=== PATIENT | female | born 1970 | race Caucasian/White ===

== ENCOUNTER → 2019-03-02 09:17 | Outpatient (CLI) | payer OTHER, SELFPAY ==
[2019-03-02 08:59] VITALS: BMI 55.1
[2019-03-02 11:19] LABS: Absolute Lymphocyte Count 2.55 X10^3/uL (0.83-4.51); Absolute Neutrophil Count 4.2 X10^3/uL (2.0-7.7); Basophil# 0.06 X10^3/uL; Basophil% 0.8 % (0-1); Eosinophil# 0.09 X10^3/uL; Eosinophils% 1.2 % (0-5); Hematocrit 42.4 % (37-47); Hemoglobin 13.7 g/dL (12.0-15.0); Lymphocyte # 2.55 X10^3/ul (4.0); Lymphocyte % 33.5 % (19-41); Mean Corp Hgb Conc 32.3 g/dL (32-36); Mean Corpuscular Hgb 31.1 pg (27.0-32.0); Mean Corpuscular Volume 96.4 fL (81-99); Mean Platelet Vol. 10.8 fl (6.2-12.0); Monocyte# 0.65 X10^3/uL; Monocyte% 8.5 % (0-10); NRBC Flagged by Analyzer 0 % (0-5); Neutrophil # 4.24 X10^3/uL (2.7-7.7); Neutrophil % 55.7 % (47-70); Platelet Count 268 K/mm3 (150-450); RBC Distribution Width CV 13.4 % (11.6-14.6); RBC Distribution Width SD 47.8 fl (35.1-43.9); White Blood Count 7.6 K/mm3 (4.4-11.0)
== END ==
PROVIDERS: Family Provider Family Medicine; Referring Provider Obstetrics & Gynecology; Visit Provider Obstetrics & Gynecology
DX: N93.9 Abnormal uterine and vaginal bleeding, unspecified (principal)
CPT/HCPCS: 36415; 85025

== ENCOUNTER → 2019-03-08 13:55 | Outpatient (CLI) | payer OTHER, SELFPAY ==
[2019-03-02 08:59] VITALS: BMI 55.1
--- NOTE | 2019-03-08 13:59 | US_ITS ---
STUDY: ULTRASOUND TRANSVAGINAL CLINICAL: Female, 48 years old. Functional uterine bleeding. Heavy periods with cramping. TECHNIQUE: Transvaginal COMPARISON: None. FINDINGS: Uterus is anteverted in midline measuring 9.0 x 5.6 x 4.6 cm. The myometrium is heterogenous. There is at least one fibroid noted in the anterior fundus which is low in attenuation, measuring 1.6 x 1.9 x 1.9 cm Normal endometrial thickness measuring 13 mm. Endometrium is hyperechoic. There are no endometrial masses, and there is no fluid in the endometrial cavity. There are nabothian cysts in the cervix. Minimal fluid is seen within the cervical canal. The ovaries are not seen. There is no evidence of adnexal mass or fluid. There is no free fluid in the pelvis. Polycystic ovary disease: No. US/Transvaginal Non- IMPRESSION: 1. Fibroid uterus. 2. Prominent endometrium without gross abnormality. 3. Nabothian space. There is questionable fluid in the cervical canal. 4. Nonvisualization of the ovaries. Electronically Signed: Inocencio Mclean DO at 17:08 EDT Tel [phone], Service support ,
== END ==
PROVIDERS: Family Provider Family Medicine; Referring Provider Obstetrics & Gynecology; Visit Provider Obstetrics & Gynecology
DX: N93.8 Other specified abnormal uterine and vaginal bleeding (principal)
CPT/HCPCS: 76830

== ENCOUNTER → 2019-03-14 14:55 | Outpatient (CLI) | payer OTHER, SELFPAY ==
[2019-03-02 08:59] VITALS: BMI 55.1
--- NOTE | 2019-03-14 14:56 | BI_ITS ---
MAMMOGRAPHY - BILATERAL SCREENING REASON FOR EXAM: Female, 48 years old. Routine annual screening examination. PERTINENT HISTORY: Mother with breast cancer. TECHNIQUE: Digital bilateral breast laila (3D mammographic acquisition) in the CC and MLO projections. 2-D mediolateral oblique (MLO) and craniocaudad (CC) views of both breasts were obtained. CAD: Full Field Digital Mammography with Computer Added Detection was performed. COMPARISON: Comparison is made with prior study dated December 22, 2011. FINDINGS: Breast Composition: The breasts are almost entirely fatty. There are no dominant masses or suspicious calcifications. Stable benign-appearing bilateral axillary lymph nodes. No other significant abnormalities are identified. There has been no significant change since the prior study. BI/SCREEN MAMM (CAD) W/LAILA BILAT IMPRESSION: Stable bilateral screening mammogram. Yearly follow-up mammogram recommended. (A) ASSESSMENT CATEGORY: BIRADS Category 2: Benign. A letter regarding these results will be sent to the patient by the facility within 30 days. Approximately 10% of breast cancers are not detected by mammography. A normal mammogram should not delay biopsy of a clinically suspicious abnormality. [id number] Electronically Signed: Yogi Rubalcava, at 10:08 EDT , Service support ,
== END ==
PROVIDERS: Referring Provider Obstetrics & Gynecology; Visit Provider Obstetrics & Gynecology
DX: Z12.31 Encounter for screening mammogram for malignant neoplasm of breast (principal); Z80.3 Family history of malignant neoplasm of breast
CPT/HCPCS: 77063; 77067

== ENCOUNTER → 2019-04-14 14:54 | Outpatient (CLI) | payer OTHER, SELFPAY ==
--- NOTE | 2019-04-14 | EMB_PTH ---
PATIENT: PRAVIN العراقي LOC: [facility] U#:[id number] AGE/SX: 54/F ROOM: RE04/14/[address]: Dr. Vera Gao MD : 1970 BED: DIS: SPEC #: [id number] RECD: 04/15/19 11:06 STATUS: TIMI WHITLEY #: [id number] MINGO: 04/14/19 00:[address]: Vera Gao DEPT: SURGICAL PATHOLOGY RECD BY: Pito Gallego ENTERED: 04/15/19 11:06 SP TYPE: ENDOM BX/C RANDY DR: Scott Johnson Tissues: Endometrium, NOS Procedures: Surgery Specimen Level IV HEADER OPERATION: Endometrial biopsy PRE-OP DIAGNOSIS: Abnormal uterine bleeding TISSUE SUBMITTED: Endometrial biopsy MICROSCOPIC DIAGNOSIS Endometrial biopsy: Proliferative endometrium. Fragments of benign endocervical mucosa, blood and mucous. SJ:latosha 04/18/19 MICROSCOPIC DESCRIPTION Slides are reviewed. GROSS DESCRIPTION Received is one container labeled with the patient's name and not further designated. The specimen consists of multiple fragments of hemorrhagic mucoid tissue that in aggregate measure 1.5 x 1.5 x 0.2 cm. The specimen is totally submitted in one cassette. / SJ:latosha 04/15/19 TC:4 CPT: [id number]
[2019-04-14 10:44] VITALS: BMI 47.7
[2019-04-20 12:30] LABS: HPV APTIMA, High Risk Negative (Negative)
== END ==
PROVIDERS: Visit Provider Obstetrics & Gynecology
DX: Z12.4 Encounter for screening for malignant neoplasm of cervix (principal); N93.9 Abnormal uterine and vaginal bleeding, unspecified
CPT/HCPCS: 87624; 88175; 88305; G0145

== ENCOUNTER → 2020-03-16 08:09 | Outpatient (CLI) | payer OTHER, SELFPAY ==
[2019-04-14 10:44] VITALS: BMI 47.7
[2020-03-05 08:48] VITALS: BMI 51.0
--- NOTE | 2020-03-16 08:10 | BI_ITS ---
MAMMOGRAPHY - BILATERAL SCREENING REASON FOR EXAM: Female, 49 years old. Routine annual screening examination. PERTINENT HISTORY: Mother with breast cancer. TECHNIQUE: Digital bilateral breast laila (3D mammographic acquisition) in the CC and MLO projections. 2-D mediolateral oblique (MLO) and craniocaudad (CC) views of both breasts were obtained. CAD: Full Field Digital Mammography with Computer Added Detection was performed. COMPARISON: Comparison is made with the prior examination dated 03/14/2019 and 12/22/2011. FINDINGS: Breast Composition: The breasts are almost entirely fatty. There are no dominant masses or suspicious calcifications. Stable small benign-appearing bilateral axillary lymph nodes. No other significant abnormalities are identified. There has been no significant change since the prior study. BI/SCREEN MAMM (CAD) W/LAILA BILAT IMPRESSION: Stable bilateral screening mammogram. Yearly follow-up mammogram recommended. (A) ASSESSMENT CATEGORY: BIRADS Category 2: Benign. A letter regarding these results will be sent to the patient by the facility within 30 days. Approximately 10% of breast cancers are not detected by mammography. A normal mammogram should not delay biopsy of a clinically suspicious abnormality. [id number] Electronically Signed: Yogi Rubalcava, at 9:41 EDT , Service support ,
== END ==
PROVIDERS: Referring Provider Obstetrics & Gynecology; Visit Provider Obstetrics & Gynecology
DX: Z12.31 Encounter for screening mammogram for malignant neoplasm of breast (principal)
CPT/HCPCS: 77063; 77067

== ENCOUNTER → 2021-03-18 07:55 | Outpatient (CLI) | payer OTHER, SELFPAY ==
[2020-03-05 08:48] VITALS: BMI 51.0
--- NOTE | 2021-03-18 07:58 | BI_ITS ---
MAMMOGRAPHY - BILATERAL SCREENING REASON FOR EXAM: Female, 50 years old. Routine annual screening examination. PERTINENT HISTORY: Mother with breast cancer. Grandmother with breast cancer. TECHNIQUE: Digital bilateral breast laila (3D mammographic acquisition) in the CC and MLO projections. 2-D mediolateral oblique (MLO) and craniocaudad (CC) views of both breasts were obtained. CAD: Full Field Digital Mammography with Computer Added Detection was performed. COMPARISON: Comparison is made with prior study dated 03/16/2020 and 03/14/2019. FINDINGS: Breast Composition: The breasts are almost entirely fatty. There are no dominant masses or suspicious calcifications. Stable small benign-appearing bilateral axillary lymph nodes. No other significant abnormalities are identified. There has been no significant change since the prior study. BI/SCRN MAMM (CAD)W/LAILA BILAT IMPRESSION: Stable bilateral screening mammogram. Yearly follow-up mammogram recommended. (A) ASSESSMENT CATEGORY: BIRADS Category 2: Benign. A letter regarding these results will be sent to the patient by the facility within 30 days. Approximately 10% of breast cancers are not detected by mammography. A normal mammogram should not delay biopsy of a clinically suspicious abnormality. [id number] Electronically Signed: Yogi Rubalcava MD at 8:55 EDT , Service support ,
== END ==
PROVIDERS: Referring Provider Obstetrics & Gynecology; Visit Provider Obstetrics & Gynecology
DX: Z12.31 Encounter for screening mammogram for malignant neoplasm of breast (principal)
CPT/HCPCS: 77063; 77067

== ENCOUNTER → 2022-04-07 | Outpatient (CLI) | payer BC, SELFPAY ==
--- NOTE | 2022-04-07 13:37 | BI_ITS ---
MAMMOGRAPHY - BILATERAL SCREENING REASON FOR EXAM: Female, 51 years old. Routine annual screening examination. PERTINENT HISTORY: Mother with breast cancer. Grandmother with breast cancer. TECHNIQUE: Digital bilateral breast laila (3D mammographic acquisition) in the CC and MLO projections. 2-D mediolateral oblique (MLO) and craniocaudad (CC) views of both breasts were obtained. CAD: Full Field Digital Mammography with Computer Added Detection was performed. COMPARISON: Comparison is made with prior study dated 03/18/2021 and 03/16/2020. FINDINGS: Breast Composition: The breasts are almost entirely fatty. There are no dominant masses or suspicious calcifications. Stable small benign-appearing bilateral axillary lymph nodes. No other significant abnormalities are identified. There has been no significant change since the prior study. BI/SCRN MAMM (CAD)W/LAILA BILAT IMPRESSION: Stable bilateral screening mammogram. Yearly follow-up mammogram recommended. (A) ASSESSMENT CATEGORY: BIRADS Category 2: Benign. A letter regarding these results will be sent to the patient by the facility within 30 days. Approximately 10% of breast cancers are not detected by mammography. A normal mammogram should not delay biopsy of a clinically suspicious abnormality. [id number] Electronically Signed: Yogi Rubalcava MD at 14:27 EST ,
== END | disposition home or self-care (01) ==
LOC: OPBI 13:36
PROVIDERS: Visit Provider Obstetrics & Gynecology
DX: Z12.31 Encounter for screening mammogram for malignant neoplasm of breast (principal); Z80.3 Family history of malignant neoplasm of breast
CPT/HCPCS: 77063; 77067

== ENCOUNTER → 2023-04-09 | Outpatient (CLI) | payer BC, SELFPAY ==
[2023-04-17 22:07] LABS: HPV APTIMA, High Risk Positive (Negative); HPV Genotype 16, Aptima Negative (Negative); HPV Genotype 18,45 Aptima Negative (Negative)
== END | disposition home or self-care (01) ==
PROVIDERS: PCP Family Medicine; Referring Provider Obstetrics & Gynecology; Visit Provider Obstetrics & Gynecology
DX: Z12.4 Encounter for screening for malignant neoplasm of cervix (principal)
CPT/HCPCS: 87624; 88175; G0145

== ENCOUNTER → 2023-04-15 | Outpatient (CLI) | payer BC, SELFPAY ==
--- NOTE | 2023-04-15 10:25 | BI_ITS ---
MAMMOGRAPHY - BILATERAL SCREENING REASON FOR EXAM: Female, 52 years old. Routine annual screening examination. PERTINENT HISTORY: Mother with breast cancer. Grandmother with breast cancer. TECHNIQUE: Digital bilateral breast laila (3D mammographic acquisition) in the CC and MLO projections. 2-D mediolateral oblique (MLO) and craniocaudad (CC) views of both breasts were obtained. CAD: Full Field Digital Mammography with Computer Added Detection was performed. COMPARISON: Comparison is made with prior study dated April 07, 2022 and March 18, 2021. FINDINGS: Breast Composition: The breasts are almost entirely fatty. There are no dominant masses or suspicious calcifications. Stable small benign-appearing bilateral axillary lymph nodes. No other significant abnormalities are identified. There has been no significant change since the prior study. BI/SCRN MAMM (CAD)W/LAILA BILAT IMPRESSION: Stable bilateral screening mammogram. Yearly follow-up mammogram recommended. (A) ASSESSMENT CATEGORY: BIRADS Category 2: Benign. A letter regarding these results will be sent to the patient by the facility within 30 days. Approximately 10% of breast cancers are not detected by mammography. A normal mammogram should not delay biopsy of a clinically suspicious abnormality. [id number] Electronically Signed: Yogi Rubalcava MD at 14:39 EST ,
== END | disposition home or self-care (01) ==
LOC: OPBI 10:23
PROVIDERS: PCP Family Medicine; Referring Provider Obstetrics & Gynecology; Visit Provider Obstetrics & Gynecology
DX: Z12.31 Encounter for screening mammogram for malignant neoplasm of breast (principal); Z80.3 Family history of malignant neoplasm of breast
CPT/HCPCS: 77063; 77067

== ENCOUNTER → 2023-08-04 | Outpatient (CLI) | payer OTHER, SELFPAY ==
--- NOTE | 2023-08-04 08:12 | EKG12_ITS ---
Test Reason : OBESITY Blood Pressure : / mmHG Vent. Rate : 071 BPM Atrial Rate : 071 BPM P-R Int : 168 ms QRS Dur : 088 ms QT Int : 398 ms P-R-T Axes : 064 045 037 degrees QTc Int : 432 ms Normal sinus rhythm Low voltage QRS Borderline ECG Confirmed by Dion Chávez ([id number]), manager medical writing CARLENE WINTERS ([id number]) on 08/07/2023 2:02:58 PM Referred By: Vera Gao Confirmed By:Dion Chávez
== END | disposition home or self-care (01) ==
LOC: PSN 08:10
PROVIDERS: PCP Family Medicine; Referring Provider Obstetrics & Gynecology; Visit Provider Obstetrics & Gynecology
DX: E66.9 Obesity, unspecified (principal)
CPT/HCPCS: 93005

== ENCOUNTER 2023-08-12 09:26 | Outpatient (CLI) | payer OTHER, SELFPAY ==
[2023-08-12 10:13] LABS: Vitamin D,25 Hydroxy 14.1 ng/mL
== END 2023-08-12 23:59 | disposition home or self-care (01) ==
LOC: PAVLAB 09:27
PROVIDERS: PCP Family Medicine; Referring Provider Obstetrics & Gynecology; Visit Provider Obstetrics & Gynecology
DX: Z13.21 Encounter for screening for nutritional disorder (principal)
CPT/HCPCS: 36415; 82306

== ENCOUNTER → 2024-03-11 | Outpatient (CLI) | payer OTHER, SELFPAY ==
--- OUTSIDE RECORDS SUMMARY | 2024-03-11 08:27 | XMS RPT_ITS | CCD ---
Author Organization [facility] Inform ion Partnership [facility] Care Team Providers Care Home Sales Service Professional Name Role Phone Delicia Johnson MD Primary Care Provider DELICIA JOHNSON Referring Unavailable DELICIA JOHNSON Primary Care Unavailable DELICIA JOHNSON Referring Unavailable DELICIA JOHNSON Attending Unavailable DELICIA JOHNSON Primary Care Unavailable Delicia Johnson MD Primary Care Provider Delicia Johnson MD Primary Care Provider Allergies Allergy Classification Reported Allergen(s) Allergy Type Date of Onset Reaction(s) Facility (4 sources) Penicillins; Translations: [PENICILLINS] Drug Intolerance 2 Other: See Comments [facility] (17 sources) Bee Sting; Translations: [BEE STING] Propensity to adverse reactions 8 Other: See Comments [facility] (13 sources) Penicillins Drug Intolerance 2 Other: See Comments [facility] Medications Current Medications Medication Drug Class(es) Dates Sig (Normalized) Sig (Original) levothyroxine sodium 0.088 mg oral tablet (20 sources) l-Thyroxine Start: 05-19-2023 End: 01-14-2024 take 1 tablet by mouth once daily levothyroxine (SYNTHROID) 88 mcg tablet Indications: Acquired hypothyroidism Take 1 tablet by mouth once daily. 90 tablet 3 01/15/2024 Active Start: 08-11-2022 End: 04-15-2023 take 1 tablet by mouth once daily levothyroxine (SYNTHROID) 88 mcg tablet Indications: Acquired hypothyroidism Take 1 tablet by mouth once daily. 90 tablet 0 04/15/2023 Active Start: 03-20-2021 End: 08-04-2022 take 1 tablet by mouth once daily levothyroxine (SYNTHROID) 88 mcg tablet Take 1 tablet by mouth once daily. 30 tablet 11 03/20/2021 09/16/2021 Discontinued Comment on above: Take 1 tablet by deirdre th once daily. meloxicam 15 mg oral tablet (20 sources) Nonsteroidal Anti-inflammatory Drug Start: 03-20-20 End: 04-04-20 22 take 1 tablet by mouth once daily at mealtime meloxicam (MOBIC) 15 mg tablet Indications: Sprain of right knee, unspecified ligament, initial encounter Take 1 tablet by mouth once daily. With food. 10 tablet 03/20/2021 Active Comment on above: Take 1 tablet by deirdre th once daily. With food. Take 1 tablet by deirdre th once daily. tranexamic acid 650 mg oral tablet (16 sources) Antifibrinolytic Agent Start: 08-23-19 take 2 tablets by mouth three times daily tranexamic acid (LYSTEDA) 650 mg tablet TAKE 2 TABLETS BY MOUTH 3 TIMES A DAY 5 DAYS BEGIN AT ONSET OF MENSTRUAL BLEEDING 08/23/2019 Active Comment on above: TAKE 2 TABLETS BY MO [facility] 3 TIMES A DAY 5 DAYS BEGIN AT ONSET OF MENSTRUAL BLEEDING Completed/Discontinued Medications Medication Drug Class(es) Dates Sig (Normalized) Sig (Original) betamethasone 3 mg/ml / betamethasone acetate 3 mg/ml injectable suspension (2 sources) Corticosteroid Start: 10-07-2021 End: 10-07-2021 betamethasone acetate-betamethason e sodium phosphate 3 mg injection (CELESTONE) Start: 10-07-2021 End: 10-07-2021 betamethasone acetate-betame thasone sodium phosphate 6 mg injection (CELESTONE) 10 ml lidocaine hydrochloride 10 mg/ml injection (2 sources) Antiarrhythmic, Amide Local Anesthetic Start: 10-07-2021 End: 10-07-2021 lidocaine (PF) 10 mg/mL (1 %) 0.5 mL injection (XYLOCAINE) Start: 10-07-2021 End: 10-07-2021 lidocaine (PF) 10 mg/mL (1 % ) 5 mL injection (XYLOCAINE) Problems Active Problems Problem Classification Problem Date Documented Date Episodic/Chronic Disorders of lipid metabolism (1 source) Raised low density lipoprotein cholesterol; Translations: [Pure hypercholesterolemia, unspecified] Chronic Immunizations and screening for infectious disease (3 sources) Patient encounter status; Translations: [Encounter for screening for human immunodeficiency virus [HIV]] Episodic Joint disorders and dislocations; trauma-related (2 sources) Subluxation of patellofemoral joint; Translations: [Unspecified subluxation of unspecified patella, initial encounter] Episodic Osteoarthritis (1 source) Primary gonarthrosis, bilateral; Translations: [Bilateral primary osteoarthritis of knee] Chronic Other connective tissue disease (1 source) Pes anserinus bursitis of right knee; Translations: [Other bursitis of knee, right knee] Episodic Other non-traumatic joint disorders (1 source) Pain in right knee; Translations: [Pain in joint, lower leg] Episodic Other nutritional; endocrine; and metabolic disorders (18 sources) Body mass index 40+ - severely obese; Translations: [Morbid (severe) obesity due to excess calories] Onset: 10-07-2017 10-07-2017 Chronic Sprains and strains (1 source) Sprain of right knee; Translations: [Sprain of unspecified site of right knee, initial encounter] 03-20-2021 Episodic Thyroid disorders (20 sources) Acquired hypothyroidism; Translations: [Hypothyroidism, unspecified] Onset: 03-04-2016 03-04-2016 Chronic Past or Other Problems Problem Classification Problem Date Documented Da te Episodic/Chronic Other ear and sense organ disorders (3 sources) Bilateral tinnitus; Translations: [Tinnitus, bilateral] Onset: 05-19-2023 Episodic Other screening for suspected conditions (not mental disorders or infectious disease) (3 sources) Encounter for screening for diabetes mellitus; Translations: [Thyroid function tests abnormal] Onset: 10-13-2012 Resolved: 06-24-2017 06-24-2017 Episodic Varicose veins of lower extremity (16 sources) Lipodermatosclerosi s; Translations: [Varicose veins of unspecified lower extremity with inflammation] Onset: 07-14-2017 07-14-2017 Episodic Results Test Name Value Interpretation Reference Range Facil ity CBC W Auto Differential pane l (Bld)on 05-22-2023 Basophils (Bld) [#/Vol] 0.05 10*3/uL Normal <0.11 [facility] Comment on above: Order Comment: Speci men Type: BLOOD SPECIMEN Ordering Facility: [facility] Address: [address] [place] [address] Performed By: #### 5 7021-8 #### [facility] CLIA [id number] [address] [place] [address] [place] Basophils/100 WBC (Bld) 0.7 % Normal [facility] Comment on above: Order Comment: Speci men Type: BLOOD SPECIMEN Ordering Facility: [facility] Address: [address] [place] [address] Performed By: #### 5 7021-8 #### [facility] CLIA [id number] [address] [place] [address] [place] Differential cell count method Nom (Bld) Auto Normal [facility] Comment on above: Order Comment: Speci men Type: BLOOD SPECIMEN Ordering Facility: [facility] Address: [address] [place] [address] Performed By: #### 5 7021-8 #### [facility] CLIA [id number] [address] [place] [address] [place] Eosinophils (Bld) [#/Vol] 0.14 10*3/uL Normal <0.46 [facility] Comment on above: Order Comment: Speci men Type: BLOOD SPECIMEN Ordering Facility: [facility] Address: [address] [place] [address] Performed By: #### 5 7021-8 #### [facility] CLIA [id number] [address] [place] [address] [place] Eosinophils/100 WBC (Bld) 2.1 % Normal [facility] Comment on above: Order Comment: Speci men Type: BLOOD SPECIMEN Ordering Facility: [facility] Address: [address] [place] [address] Performed By: #### 5 7021-8 #### [facility] CLIA [id number] [address] [place] [address] [place] Erythrocyte distribution width (RBC) [Ratio] 13.4 % Normal 11.5-15.0 [facility] Comment on above: Order Comment: Speci men Type: BLOOD SPECIMEN Ordering Facility: [facility] Address: [address] [place] [address] Performed By: #### 5 7021-8 #### [facility] CLIA [id number] [address] [place] [address] [place] Hematocrit (Bld) [Volume fraction] 40.9 % Normal 36.0-46.0 [facility] Comment on above: Order Comment: Speci men Type: BLOOD SPECIMEN Ordering Facility: [facility] Address: [address] [place] [address] Performed By: #### 5 7021-8 #### [facility] CLIA [id number] [address] [place] [address] [place] Hemoglobin (Bld) [Mass/Vol] 13.2 g/dL Normal 11.5-15.5 [facility] Comment on above: Order Comment: Speci men Type: BLOOD SPECIMEN Ordering Facility: [facility] Address: [address] [place] [address] Performed By: #### 5 7021-8 #### [facility] CLIA [id number] [address] [place] [address] [place] Immature granulocytes (Bld) [#/Vol] 0.03 10*3/uL Normal <0.10 [facility] Comment on above: Order Comment: Speci men Type: BLOOD SPECIMEN Ordering Facility: [facility] Address: [address] [place] [address] Performed By: #### 5 7021-8 #### [facility] CLIA [id number] [address] [place] [address] [place] Immature granulocytes/100 WBC (Bld) 0.4 % Normal [facility] Comment on above: Order Comment: Speci men Type: BLOOD SPECIMEN Ordering Facility: [facility] Address: [address] [place] [address] Performed By: #### 5 7021-8 #### [facility] CLIA [id number] [address] [place] [address] [place] Lymphocytes (Bld) [#/Vol] 2.39 10*3/uL Normal 1.00-4.00 [facility] Comment on above: Order Comment: Speci men Type: BLOOD SPECIMEN Ordering Facility: [facility] Address: [address] [place] [address] Performed By: #### 5 7021-8 #### [facility] CLIA [id number] [address] [place] [address] [place] Lymphocytes/100 WBC (Bld) 35.1 % Normal [facility] Comment on above: Order Comment: Speci men Type: BLOOD SPECIMEN Ordering Facility: [facility] Address: [address] [place] [address] Performed By: #### 5 7021-8 #### [facility] CLIA [id number] [address] [place] [address] [place] MCH (RBC) [Entitic mass] 30.8 pg Normal 26.0-34.0 [facility] Comment on above: Order Comment: Speci men Type: BLOOD SPECIMEN Ordering Facility: [facility] Address: [address] [place] [address] Performed By: #### 5 7021-8 #### [facility] CLIA [id number] [address] [place] [address] [place] MCHC (RBC) [Mass/Vol] 32.3 g/dL Normal 30.5-36.0 [facility] Comment on above: Order Comment: Speci men Type: BLOOD SPECIMEN Ordering Facility: [facility] Address: [address] [place] [address] Performed By: #### 5 7021-8 #### [facility] CLIA [id number] [address] [place] [address] [place] MCV (RBC) [Entitic vol] 95.3 fL Normal 80.0-100.0 [facility] Comment on above: Order Comment: Speci men Type: BLOOD SPECIMEN Ordering Facility: [facility] Address: [address] [place] [address] Performed By: #### 5 7021-8 #### [facility] CLIA [id number] [address] [place] [address] [place] Monocytes (Bld) [#/Vol] 0.56 10*3/uL Normal <0.87 [facility] Comment on above: Order Comment: Speci men Type: BLOOD SPECIMEN Ordering Facility: [facility] Address: [address] [place] [address] Performed By: #### 5 7021-8 #### [facility] CLIA [id number] [address] [place] [address] [place] Monocytes/100 WBC (Bld) 8.2 % Normal [facility] Comment on above: Order Comment: Speci men Type: BLOOD SPECIMEN Ordering Facility: [facility] Address: [address] [place] [address] Performed By: #### 5 7021-8 #### [facility] CLIA [id number] [address] [place] [address] [place] Neutrophils (Bld) [#/Vol] 3.63 10*3/uL Normal 1.45-7.50 [facility] Comment on above: Order Comment: Speci men Type: BLOOD SPECIMEN Ordering Facility: [facility] Address: [address] [place] [address] Performed By: #### 5 7021-8 #### [facility] CLIA [id number] [address] [place] [address] [place] Neutrophils/100 WBC (Bld) 53.5 % Normal [facility] Comment on above: Order Comment: Speci men Type: BLOOD SPECIMEN Ordering Facility: [facility] Address: [address] [place] [address] Performed By: #### 5 7021-8 #### [facility] CLIA [id number] [address] [place] [address] [place] Nucleated RBC (Bld) [#/Vol] 10*3/uL Normal <0.01 [facility] Comment on above: Order Comment: Speci men Type: BLOOD SPECIMEN Ordering Facility: [facility] Address: [address] [place] [address] Performed By: #### 5 7021-8 #### [facility] CLIA [id number] [address] [place] [address] [place] Nucleated RBC/100 WBC (Bld) [Ratio] 0.0 /100 WBC Normal [facility] Comment on above: Order Comment: Speci men Type: BLOOD SPECIMEN Ordering Facility: [facility] Address: [address] [place] [address] Performed By: #### 5 7021-8 #### [facility] CLIA [id number] [address] [place] [address] [place] Platelet mean volume (Bld) [Entitic vol] 10.7 fL Normal 9.0-12.7 [facility] Comment on above: Order Comment: Speci men Type: BLOOD SPECIMEN Ordering Facility: [facility] Address: [address] [place] [address] Performed By: #### 5 7021-8 #### [facility] CLIA [id number] [address] [place] [address] [place] Platelets (Bld) [#/Vol] 289 10*3/uL Normal 150-400 [facility] Comment on above: Order Comment: Speci men Type: BLOOD SPECIMEN Ordering Facility: [facility] Address: [address] [place] [address] Performed By: #### 5 7021-8 #### [facility] CLIA [id number] [address] [place] [address] [place] RBC (Bld) [#/Vol] 4.29 10*6/uL Normal 3.90-5.20 [facility] Comment on above: Order Comment: Speci men Type: BLOOD SPECIMEN Ordering Facility: [facility] Address: [address] [place] [address] Performed By: #### 5 7021-8 #### [facility] CLIA [id number] [address] [place] [id number] [place] WBC (Bld) [#/Vol] 6.80 10*3/uL Normal 3.70-11.00 [facility] Comment on above: Order Comment: Speci men Type: BLOOD SPECIMEN Ordering Facility: [facility] Address: [address] [place] [address] Performed By: #### 5 7021-8 #### [facility] CLIA [id number] [address] [place] [address] [place] Comprehensive metabolic 2000 panelon 05-22-2023 Albumin [Mass/Vol] 3.9 g/dL Normal 3.9-4.9 [facility] Comment on above: Order Comment: Speci men Type: BLOOD SPECIMEN Ordering Facility: [facility] Address: [address] [place] [address] Performed By: #### 2 4331-1, T4FT, 15746-8 #### [facility] CLIA [id number] [address] [place] [address] [place] ALP [Catalytic activity/Vol] 84 U/L Normal 34-123 [facility] Comment on above: Order Comment: Speci men Type: BLOOD SPECIMEN Ordering Facility: [facility] Address: [address] [place] [address] Performed By: #### 2 4331-1, T4FTI, 40443-0 #### [facility] CLIA [id number] [address] [place] [id number] [place] ALT [Catalytic activity/Vol] 21 U/L Normal 7-38 [facility] Comment on above: Order Comment: Speci men Type: BLOOD SPECIMEN Ordering Facility: [facility] Address: [address] [place] [address] Performed By: #### 2 4331-1, T4FTI, #### [facility] CLIA [id number] [address] [place] [address] [place] Anion gap [Moles/Vol] 11 mmol/L Normal 9-18 [facility] Comment on above: Order Comment: Speci men Type: BLOOD SPECIMEN Ordering Facility: [facility] Address: [address] [place] [address] Performed By: #### 2 4331-1, T4FTI, #### [facility] CLIA [id number] [address] [place] [address] [place] AST [Catalytic activity/Vol] 17 U/L Normal 13-35 [facility] Comment on above: Order Comment: Speci men Type: BLOOD SPECIMEN Ordering Facility: [facility] Address: [address] [place] [address] Performed By: #### 2 4331-1, T4FTI, #### [facility] CLIA [id number] [address] [place] [address] [place] Bilirubin [Mass/Vol] 0.4 mg/dL Normal 0.2-1.3 [facility] Comment on above: Order Comment: Speci men Type: BLOOD SPECIMEN Ordering Facility: [facility] Address: [address] [place] [address] Performed By: #### 2 4331-1, T4FTI, 43429-0 #### [facility] CLIA [id number] [address] [place] [address] [place] Calcium [Mass/Vol] 9.1 mg/dL Normal 8.5-10.2 [facility] Comment on above: Order Comment: Speci men Type: BLOOD SPECIMEN Ordering Facility: [facility] Address: [address] [place] [address] Performed By: #### 2 4331-1, T4FTI, #### [facility] CLIA [id number] [address] [place] [address] [place] Chloride [Moles/Vol] 102 mmol/L Normal 97-105 [facility] Comment on above: Order Comment: Speci men Type: BLOOD SPECIMEN Ordering Facility: [facility] Address: [address] [place] [address] Performed By: #### 2 4331-1, T4FT, #### [facility] CLIA [id number] [address] [place] [address] [place] CO2 [Moles/Vol] 26 mmol/L Normal 22-30 [facility] Comment on above: Order Comment: Speci men Type: BLOOD SPECIMEN Ordering Facility: [facility] Address: [address] [place] [address] Performed By: #### 2 4331-1, T4FT, #### [facility] CLIA [id number] [address] [place] [address] [place] Creatinine [Mass/Vol] 0.68 mg/dL Normal 0.58-0.96 [facility] Comment on above: Order Comment: Speci men Type: BLOOD SPECIMEN Ordering Facility: [facility] Address: [address] [place] [address] Performed By: #### 2 4331-1, T4FT, #### [facility] CLIA [id number] [address] [place] [address] [place] Creatinine and Glomerular filtration rate.predicted panel (S/P/Bld) 104 mL/min/1.73m??? Normal >=60 [facility] Comment on above: Order Comment: Speci men Type: BLOOD SPECIMEN Ordering Facility: [facility] Address: [address] [place] [address] Result Comment: Brittney mated Glomerular Filtration Rate (eGFR) is calculated using the 2020 CKD-EPI creatinine equation. This equation utilizes serum creatinine, sex, and age as parameters. The creatinine assay has traceable calibration to isotope dilution-mass spectrometry. Refer to KDIGO guidelines for clinical interpretation. In patients with unstable renal function, e.g. those with acute kidney injury, the eGFR may not accurately reflect actual GFR. Performed By: #### 2 4331-1, T4FTI, #### [facility] CLIA [id number] [address] [place] [address] [place] Glucose [Mass/Vol] 100 mg/dL High 74-99 [facility] Comment on above: Order Comment: Pacheco valiente Type: BLOOD SPECIMEN Ordering Facility: [facility] Address: [address] [place] [address] Result Comment: The [place] Diabetes [employer] (ADA) provides guidance for cutoff values for fasting glucose and random glucose. The ADA defines fasting as no caloric intake for at least 8 hours. Fasting plasma glucose results between 100 to 125 mg/dL indicate increased risk for diabetes (prediabetes). Fasting plasma glucose results greater than or equal to 126 mg/dL meet the criteria for diagnosis of diabetes. In the absence of unequivocal hyperglycemia, results should be confirmed by repeat testing. In a patient with classic symptoms of hyperglycemia or hyperglycemic crisis, random plasma glucose results greater than or equal to 200 mg/dL meet the criteria for diagnosis of diabetes. Reference: Standards of Medical Care in Diabetes 2016, [place] [employer]. Diabetes Care. 2016.39(Suppl 1). Performed By: #### 2 4331-1, T4FT, #### [facility] CLIA [id number] [address] [place] [address] [place] Potassium [Moles/Vol] 3.9 mmol/L Normal 3.7-5.1 [facility] Comment on above: Order Comment: Pacheco valiente Type: BLOOD SPECIMEN Ordering Facility: [facility] Address: [address] [place] [address] Performed By: #### 2 4331-1, T4FTI, #### [facility] CLIA [id number] [address] [place] [address] [place] Protein [Mass/Vol] 7.0 g/dL Normal 6.3-8.0 [facility] Comment on above: Order Comment: Speci men Type: BLOOD SPECIMEN Ordering Facility: [facility] Address: [address] [place] [address] Performed By: #### 2 4331-1, T4FTI, #### [facility] CLIA [id number] [address] [place] [address] [place] Sodium [Moles/Vol] 139 mmol/L Normal 136-144 [facility] Comment on above: Order Comment: Speci men Type: BLOOD SPECIMEN Ordering Facility: [facility] Address: [address] [place] [address] Performed By: #### 2 4331-1, T4FTI, #### [facility] CLIA [id number] [facility] [place] [address] [place] Urea nitrogen [Mass/Vol] 15 mg/dL Normal 7-21 [facility] Comment on above: Order Comment: Speci men Type: BLOOD SPECIMEN Ordering Facility: [facility] Address: [address] [place] [address] Performed By: #### 2 4331-1, T4FT, #### [facility] CLIA [id number] [address] [place] [address] [place] HbA1c (Bld)on 05-22-2023 Average glucose Estimated from glycated hemoglobin (Bld) [Mass/Vol] 111 mg/dL Normal [facility] Comment on above: Order Comment: Speci men Type: BLOOD SPECIMEN Ordering Facility: [facility] Address: [address] [place] [address] Result Comment: eAG: (Estimated average glucose) is a calculated value from HgbA1c and is sales representative leather goods of the average blood glucose level in the last 2-3 month period. Performed By: #### 5 5454-3 #### [facility] CLIA [id number] [address] [place] [address] [place] HbA1c (Bld) [Mass fraction] 5.5 % Normal 4.3-5.6 [facility] Comment on above: Order Comment: Pacehco valiente Type: BLOOD SPECIMEN Ordering Facility: [facility] Address: [address] [place] [address] Result Comment: [place] Diabetes Association guidelines indicate that patients with HgbA1c in the range 5.7-6.4% are at increased risk for development of diabetes, and intervention by lifestyle modification may be beneficial. HgbA1c greater or equal to 6.5% is considered diagnostic of diabetes. Performed By: #### 5 5454-3 #### [facility] CLIA [id number] [address] [place] [address] [place] Lipid 1996 panelon 3 Cholesterol [Mass/Vol] 211 mg/dL High <200 [facility] Comment on above: Order Comment: Pacheco valiente Type: BLOOD SPECIMEN Ordering Facility: [facility] Address: [address] [place] [address] Result Comment: <200 mg/dL, Desirable 200-239 mg/dL, Borderline high >239 mg/dL, High Performed By: #### 2 4331-1, T4FTI, #### [facility] CLIA [id number] [address] [place] Cholesterol in HDL [Mass/Vol] 58 mg/dL Normal >39 [facility] Comment on above: Order Comment: Pacheco valiente Type: BLOOD SPECIMEN Ordering Facility: [facility] Address: [address] [place] [address] Result Comment: 40-5 9 mg/dL, Acceptable >59 mg/dL, High: Negative risk factor for coronary heart disease <40 mg/dL, Low: Positive risk factor for coronary heart disease Performed By: #### 2 4331-1, T4FTI, #### [facility] CLIA [id number] [address] [place] Cholesterol in LDL [Mass/Vol] 131 mg/dL High <100 [facility] Comment on above: Order Comment: Hernani men Type: BLOOD SPECIMEN Ordering Facility: [facility] Address: [address] [place] [address] Result Comment: <100 mg/dL, Optimal 100-129 mg/dL, Near optimal/above optimal 130-159 mg/dL, Borderline high 160-189 mg/dL, High >189 mg/dL, Very high Secondary prevention optimal LDL Cholesterol levels are recommended to be < 70 mg/dL Performed By: #### 2 4331-1, T4FTI, #### [facility] CLIA [id number] [address] [place] [address] [place] Cholesterol in LDL/Cholesterol in HDL [Mass ratio] 2.26 {ratio} Normal <2.54 [facility] Comment on above: Order Comment: Pacheco men Type: BLOOD SPECIMEN Ordering Facility: [facility] Address: [address] [place] [address] Result Comment: Robbie jaimes: 1. National Cholesterol Education Program ATP III Guideline At-A-Glance Quick Desk Reference: National Heart, Lung, and Blood [place]. National Institutes of Health. 2001: NIH Publication No. 01-3305. 2. An International Atherosclerosis Society position paper: global recommendations for the management of dyslipidemia: executive summary, Atherosclerosis. 2014: 232(2):410-413. Performed By: #### 2 4331-1, T4FT, #### [facility] CLIA [id number] [address] [place] [address] [place] Cholesterol in VLDL [Mass/Vol] 22 mg/dL Normal <30 [facility] Comment on above: Order Comment: Pacheco men Type: BLOOD SPECIMEN Ordering Facility: [facility] Address: [address] [place] [address] Performed By: #### 2 4331-1, T4FTI, #### [facility] CLIA [id number] [address] [place] [address] [place] Cholesterol non HDL [Mass/Vol] 153 mg/dL High <130 [facility] Comment on above: Order Comment: Speci men Type: BLOOD SPECIMEN Ordering Facility: [facility] Address: [address] [place] [address] Result Comment: <130 mg/dL, Optimal 130-159 mg/dL, Near optimal/above optimal 160-189 mg/dL, Borderline high 190-219 mg/dL, High >219 mg/dL, Very high Secondary prevention optimal non HDL Cholesterol levels are recommended to be <100 mg/dL Performed By: #### 2 4331-1, T4FTI, #### [facility] CLIA [id number] [address] [place] [address] [place] Cholesterol.total/C holesterol in HDL [Mass ratio] 3.64 {ratio} Normal <5.10 [facility] Comment on above: Order Comment: Speci men Type: BLOOD SPECIMEN Ordering Facility: [facility] Address: [address] [place] [address] Performed By: #### 2 4331-1, T4FTI, #### [facility] CLIA [id number] [address] [place] [address] [place] FASTING TIME 13 hrs Normal [facility] Comment on above: Order Comment: Speci men Type: BLOOD SPECIMEN Ordering Facility: [facility] Address: [address] [place] [address] Performed By: #### 2 4331-1, T4FTI, #### [facility] CLIA [id number] [address] [place] [id number] [place] Triglyceride [Mass/Vol] 108 mg/dL Normal <150 [facility] Comment on above: Order Comment: Speci men Type: BLOOD SPECIMEN Ordering Facility: [facility] Address: [address] [place] [address] Result Comment: <150 mg/dL, Normal 150-199 mg/dL, Borderline high 200-499 mg/dL, High >499 mg/dL, Very high Performed By: #### 2 4331-1, T4FTI, #### [facility] CLIA [id number] [address] [place] [address] [place] T4/FTI/T4Uon 05-22-2023 FTI 8.7 ug/dL Normal 5.3-10.8 [facility] Comment on above: Order Comment: Speci men Type: BLOOD SPECIMEN Ordering Facility: [facility] Address: [address] [place] [address] Performed By: #### 2 4331-1, T4FTI, #### [facility] CLIA [id number] [address] [place] [address] [place] T4 [Mass/Vol] 9.0 ug/dL Normal 5.5-10.2 [facility] Comment on above: Order Comment: Speci men Type: BLOOD SPECIMEN Ordering Facility: [facility] Address: [address] [place] [address] Performed By: #### 2 4331-1, T4FTI, #### [facility] CLIA [id number] [address] [place] [address] [place] T4 uptake [Mass/Vol] 1.03 Normal 0.91-1.19 [facility] Comment on above: Order Comment: Speci men Type: BLOOD SPECIMEN Ordering Facility: [facility] Address: [address] [place] [address] Performed By: #### 2 4331-1, T4FTI, #### [facility] CLIA [id number] [address] [place] [address] [place] TSH SerPl-aCncon 05-22-2023 TSH Qn 2.730 m[IU]/L Normal 0.270-4.200 [facility] Comment on above: Order Comment: Speci men Type: BLOOD SPECIMEN Ordering Facility: [facility] Address: [address] [place] [address] Performed By: #### 3 016-3 #### [facility] CLIA [id number] [address] [place], [place] [address] [place] MKOVcorey 05-19-2023 CNOV Office Visit (FAMPWS ) MARTÍNEZ FARRAH JORGE ([id number]) 1970 F Date Time Provider Department 05/19/23 1:00 PM [facility] During your visit today, we recorded the following information about you: Pulse Respiration Blood pressure Weight 74/minute 16/minute 122/80 155.6 kg Delicia Johnson MD 05/19/2023 1:50 PM Signed Patient presents with: Physical HPI: Patient presents today for office visit for well visit. HYPOTHYROID:energy is doing well. Wants to do an am lab. Has mild hair thinning of her hair. Still not yet in menopause but wonders it it plays a role. Has some plantar fasciitis in her left heel. Wearing support shoes and stretches. Worse when has rested it. No trauma. Started this summer. Does favor her left side due to right knee issues. No weight changes but is in her bare feet frequently. Uses meloxicam just prn. Has had her ears checked. Has chronic tinnitus. Has a little issue with her base of her thumbs. Does have a hx of carpal tunnel. Numbness comes and goes. Discussed trying braces. Red flags for re-assessment reviewed with patient in detail. Still seeing Dr. Lugo. Discussed that her insurance may cover her for weight loss. Discussed that we could try a med after the first when her coverage changes. Discussed meds. MEDICATIONS: Current Outpatient Medications Medication Sig levothyroxine (SYNTHROID) 88 mcg tablet Take 1 tablet by mouth once daily. meloxicam (MOBIC) 15 mg tablet Take 1 tablet by mouth once daily. meloxicam (MOBIC) 15 mg tablet Take 1 tablet by mouth once daily. With food. (Patient taking differently: Take by mouth once daily. With food.) tranexamic acid (LYSTEDA) 650 mg tablet TAKE 2 TABLETS BY MOUTH 3 TIMES A DAY 5 DAYS BEGIN AT ONSET OF MENSTRUAL BLEEDING No current facility-administered medications for this visit. 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 Obesity Septal panniculitis PAST SURGICAL HISTORY Procedure Laterality Date PAST SURGICAL HISTORY OF skin biopsy - erythema nodosum FAMILY HISTORY Problem Relation Age of Onset Thyroid Sister cancer - half sister Thyroid Maternal Aunt Hyperthyroidism Cancer Father leukemia Breast Cancer Mother 2007 Breast Cancer Paternal Grandmother Diabetes Father Thyroid Maternal Aunt Hypothyroidism Social History Tobacco Use Smoking status: Never Smokeless tobacco: Never Vaping Use Vaping Use: Never used Substance Use Topics Alcohol use: Yes Alcohol/week: 4.0 standard drinks of alcohol Types: 4 Glasses of Wine (5oz) per week Comment: socially Drug use: No Reviewed current medications, allergies, past medical history, surgical history, family history and social history today. REVIEW OF SYSTEMS RESPIRATORY: Negative for cough, hemoptysis, wheezing, COPD, dyspnea or shortness of breath CARDIOVASCULAR: Negative for chest pain, leg swelling, hypertension, CHF or palpitations GI: No nausea, vomiting, or diarrhea : No history of dysuria, frequency or incontinence All other reviewed and negative other than HPI. HEALTH MAINTENANCE: Reviewed health maintenance issues today and recommended the following in detail. Hepatitis B Vaccine(1 of 3 - 3-dose series) Never done DTaP,Tdap,Td Vaccine(1 - Tdap) due on 10/08/2008 Colorectal Cancer Screening - has never done. Has cologuard at home. Shingrix Vaccine(1 of 2) Never done Depression Assessment due on 05/25/2022 Annual PCP Team Chronic Disease Visit due on 04/04/2023 Mammogram Screening per sewage reticulation drafting officer. VITALS: BP 122/80 Pulse 74 Resp 16 Wt (!) 155.6 kg (343 lb) LMP 07/09/2017 SpO2 98% BMI 52.15 kg/m? Last 4 Encounter Wt Readings: Date: Wt: 05/19/2023 155.6 kg (343 lb) 04/04/2022 145.2 kg (320 lb) 03/20/2021 153.8 kg (339 lb) 08/13/2018 138.8 kg (306 lb) PHYSICAL EXAMINATION: General appearance: Well appearing, alert, in no acute distress, well-hydrated, well nourished. Skin: Skin color, texture, turgor normal, no suspicious rashes or lesions Head: Normocephalic, no masses, lesions, tenderness or abnormalities Eyes: Anicteric sclera. Pupils are equally round and reactive to light. Extraocular movements are intact. Ears: External ears normal, canals clear Nose/Sinuses: Nares normal, septum midline, mucosa normal, no drainage or sinus tenderness Oropharynx: Lips, mucosa, and tongue normal, teeth and gums normal, oropharynx normal Neck: Supple, no adenopathy; thyroid symmetric, normal size, no bruits Lungs: Lungs clear to auscultation. No wheezing, rhonchi, rales Heart: RRR without murmur, gallop, or rubs. No ectopy Abdomen: Normal abdomi (more content not included)... Normal [facility] XR Knee - right 4 Viewson IMPRESSION: 1. Bilateral lateral patellar subluxation. 2. Osteoarthritis as described. Photo Checker: [facility] Transcribe Date/Time: Mar 20 2021 9:35A Dictated by : SHARA HOLCOMB MD This examination was interpreted and the report reviewed and electronically signed by: SHARA HOLCOMB MD on Mar 20 2021 9:37AM [facility] DIVISION OF RADIOLOGY * * *Final Report* * * DATE OF EXAM: Mar 20 2021 9:08AM WOX [id number] - XR KNEE 4V AP/PA BOTH+LAT/JERRY RT / PROCEDURE REASON: Sprain of right knee, unspecified ligament, initial encounter * * * * Physician Interpretation * * * * CLINICAL INDICATION: Knee pain TECHNIQUE: AP/PA/merchant radiographs of both knees and lateral radiograph of the right knee COMPARISON: None FINDINGS: Right knee: No suprapatellar joint effusion. No acute fracture. Mild medial compartmental joint space narrowing. Lateral patellar subluxation with severe patellofemoral compartmental joint space narrowing along the lateral patellar facet. Tricompartmental osteophyte production. Left knee: No acute fracture. Mild medial compartmental joint space narrowing. Lateral patellar subluxation with moderate patellofemoral compartmental joint space narrowing along the lateral patellar facet. Tricompartmental osteophyte production. DIVISION OF RADIOLOGY Provider, Berenice Montano - 03/20/2021 * * *Final Report* * * DATE OF EXAM: Mar 20 2021 9:08AM WOX [id number] - XR KNEE 4V AP/PA BOTH+LAT/JERRY RT / PROCEDURE REASON: Sprain of right knee, unspecified ligament, initial encounter * * * * Physician Interpretation * * * * CLINICAL INDICATION: Knee pain TECHNIQUE: AP/PA/merchant radiographs of both knees and lateral radiograph of the right knee COMPARISON: None FINDINGS: Right knee: No suprapatellar joint effusion. No acute fracture. Mild medial compartmental joint space narrowing. Lateral patellar subluxation with severe patellofemoral compartmental joint space narrowing along the lateral patellar facet. Tricompartmental osteophyte production. Left knee: No acute fracture. Mild medial compartmental joint space narrowing. Lateral patellar subluxation with moderate patellofemoral compartmental joint space narrowing along the lateral patellar facet. Tricompartmental osteophyte production. IMPRESSION IMPRESSION: 1. Bilateral lateral patellar subluxation. 2. Osteoarthritis as described. Photo Checker: [facility] Transcribe Date/Time: Mar 20 2021 9:35A Dictated by : SHARA HOLCOMB MD This examination was interpreted and the report reviewed and electronically signed by: SHARA HOLCOMB MD on Mar 20 2021 9:37AM EST [facility] Radiology Study observation (narrative) [facility] XR Knee - right 4 ViewsOrder ed By: [facility] Provider on 03-20-2021 [facility] No Panel Information [facility] Vital Signs Date Time Vital Sign Value Performing Clinician Sara trivedi 04-04-2022 13:07-0500 Body weight 145.15 kg Delicia Johnson MD Work Phone: [facility] 04-04-2022 13:07-0500 Diastolic blood pressure 82 mm[Hg] Delicia Johnson MD Work Phone: [facility] 04-04-2022 13:07-0500 Heart rate 67 /min Delicia Johnson MD Work Phone: [facility] 04-04-2022 13:07-0500 SaO2% (BldA) [Mass fraction] 96 % Delicia Johnson MD Work Phone: [facility] 04-04-2022 13:07-0500 Systolic blood pressure 122 mm[Hg] Delicia Johnson MD Work Phone: [facility] Encounters Encounter Date Encounter Type Care Provider Facility Start: 01-14-2024 End: 01-15-2024 Refill Delicia Johnson MD Work Phone: [facility] [place] Comment on above: Refill Request Start: 08-18-2023 Refill Delicia Johnson MD Work Phone: [facility] [place] Comment on above: Refill Request Start: 05-22-2023 End: 05-23-2023 ambulatory DELICIA JOHNSON Facility:[facility] Start: 05-19-2023 End: 05-19-2023 ambulatory DELICIA JONO Facility:[facility] Start: 05-13-2023 ambulatory Delicia Johnson MD Work Phone: Internal Medicine [facility] Start: 04-15-2023 Refill Delicia Johnson MD Work Phone: [facility] [place] Comment on above: Refill Request Start: 12-15-2022 Refill Delicia Johnson MD Work Phone: [facility] [place] Comment on above: Refill Request Start: 08-09-2022 Refill Delicia Johnson MD Work Phone: [facility] [place] Comment on above: Refill Request Start: 06-05-2022 Refill Delicia Johnson MD Work Phone: [facility] [place] Comment on above: Refill Request Start: 04-04-2022 End: 04-04-2022 Patient encounter procedure Delicia Johnson MD Work Phone: [facility] [place] Comment on above: Well adult exam (Agustina menard Dx); Acquired hypothyroidism; Obesity, Class III, BMI 40-49.9 (morbid obesity) (HCC); Tinnitus of both ears Start: 04-04-2022 End: 04-04-2022 Patient encounter status Delicia Johnson MD Work Phone: [facility] [place] Start: 03-31-2022 Refill Delicia Johnson MD Work Phone: [facility] [place] Comment on above: Refill Request Start: 02-26-2022 Refill Delicia Johnson MD Work Phone: [facility] [place] Comment on above: Refill Request Start: 11-18-2021 Refill Srinivas Mcdermott on PA-C Work Phone: [facility] [place] Comment on above: Refill Request Start: 10-07-2021 End: 10-07-2021 Patient encounter procedure Meena Veterese PA-C Work Phone: Orthopaedics Comment on above: Primary osteoarthrit is of both knees (Primary Dx); Pes anserinus bursitis of right knee; Acute pain of right knee Start: 09-16-2021 Refill Meena Veliyah z PA-C Work Phone: Orthopaedics Comment on above: Refill Request Start: 03-20-2021 End: 03-20-2021 Subsequent hospital visit by physician Diana [facility] [place] Work Phone: Radiology Comment on above: Sprain of right knee , unspecified ligament, initial encounter [S83.91XA] Procedures Date Procedure Procedure Detail Performing Clinician Start: 05-22-2023 Lipid 1996 panel - S deepali or Plasma Delicia Johnson MD Work Phone: Start: 04-07-2022 Mammography Delicia Murillo MD Work Phone: Start: 10-07-2021 End: 10-07-2021 Arthrocentesis aspir&/inj major jt/bursa w/o us Meena Vetomajo PA-C Work Phone: Start: 10-07-2021 Lipid 1996 panel - S deepali or Plasma Delicia Johnson MD Work Phone: Start: 03-20-2021 Radiologic exam knee complete 4/more views Delicia Johnson MD Work Phone: Start: 03-18-2021 Mammography Meena johnson PA-C Work Phone: Start: 03-17-2021 Adult depression scr eening assessment Meena Smith PA-C Work Phone: Plan of Treatment Date Care Activity Detail Author Start: 05-22-2028 Lipid panel Lipid Screening [facility] Start: 04-09-2028 Screening for malign ant neoplasm of cervix [facility] Start: 10-07-2026 Lipid 1996 panel - Serum or Plasma Lipid Screening [facility] Start: 10-07-2026 Lipid panel Lipid Screening [facility] Start: 10-07-2026 LIPID SCREEN LIPID SCREEN [facility] Start: 05-22-2026 Diabetes Screening Diabetes Screenin g [facility] Start: 04-09-2026 Screening for malign ant neoplasm of cervix Cervical Cancer Screening [facility] Start: 07-06-2025 LIPID SCREEN LIPID SCREEN [facility] Start: 10-07-2024 DIABETES SCREEN DIABETES SCREEN [facility] Start: 10-07-2024 Diabetes Screening Diabetes Screenin g [facility] Start: 05-19-2024 Annual PCP Team Insurance Job Titles andrea Disease Visit Annual PCP Team Chronic Disease Visit [facility] Start: 05-19-2024 Covid-19 Vaccine ( season) Covid-19 Vaccine () [facility] Comment on above: Postponed from 01/23 (Declined at this time) Start: 05-19-2024 Hepatitis B Vaccine (1 of 3 - 19+ 3-dose series) Hepatitis B Vaccine (1 of 3 - 19+ 3-dose series) [facility] Comment on above: Postponed from 05/21 (Declined at this time) Start: 05-19-2024 Shingrix Vaccine (1 of 2) Shingrix Vaccine (1 of 2) [facility] Comment on above: Postponed from 05/21 (Declined at this time) Start: 05-19-2024 Urine microalbumin profile DTaP,Tdap,Td Vaccine (1 - Tdap) [facility] Comment on above: Postponed from 10/08 (Declined at this time) Start: 04-14-2024 HPV TESTING HPV TESTING [facility] Start: 04-14-2024 PAP TESTING PAP TESTING [facility] Start: 01-24-2024 Covid-19 Vaccine ( season) Covid-19 Vaccine () [facility] Start: 01-24-2024 Influenza vaccination Influenza Vacc ine (#1) [facility] Start: 11-22-2023 Influenza vaccination Influenza Vacc ine (#1) [facility] Comment on above: Postponed from 01/23 (Declined at this time) Start: 07-06-2023 DIABETES SCREEN DIABETES SCREEN [facility] Start: 05-25-2023 [facility] Start: 04-07-2023 Mammography [facility] Start: 04-07-2023 Screening for malign ant neoplasm of breast Mammogram Screening [facility] Start: 04-04-2023 ANNUAL PCP TEAM WARD AIDE ANDREA DISEASE VISIT ANNUAL PCP TEAM CHRONIC DISEASE VISIT [facility] Start: 01-23-2023 Covid-19 Vaccine ( season) Covid-19 Vaccine () [facility] Start: 01-23-[address] [facility] Start: 11-21-2022 Influenza vaccination INFLUENZA (#1) [facility] Comment on above: Postponed from 01/23 (Declined at this time) Start: 05-25-2022 [facility] Start: 04-11-2022 ANNUAL PCP TEAM WARD AIDE ANDREA DISEASE VISIT ANNUAL PCP TEAM CHRONIC DISEASE VISIT [facility] Start: 04-07-2022 Mammography MAMMOGRAM [facility] Comment on above: Postponed from 03/18 (Currently Scheduled) Start: 04-04-2022 End: 06-04-2022 Thyrotropin [Units/volume] in Serum or Plasma [facility] Work Phone: Comment on above: Expected: 04/04/2022 , Expires: 06/04/2022 Start: 04-04-2022 End: 06-04-2022 Thyroxine (T4) free [Mass/volume] in Serum or Plasma [facility] Work Phone: Comment on above: Expected: 04/04/2022 , Expires: 06/04/2022 Start: 03-18-2022 Mammography MAMMOGRAM [facility] Start: 03-17-2022 Adult depression screening assessment DEPRESSION SCREENING [facility] Start: 01-23-2022 Influenza vaccination [facility] Start: 09-16-2021 End: 11-16-2021 CBC W Auto Differential panel - Blood CBC + DIFF Lab Routine Acquired hypothyroidism Expected: 09/16/2021, Expires: 11/16/2021 [facility] Work Phone: Comment on above: Expected: 09/16/2021 , Expires: 11/16/2021 Start: 09-16-2021 End: 11-16-2021 Comprehensive metabolic 2000 panel - Serum or Plasma COMP METABOLIC PANEL Lab Routine Acquired hypothyroidism Elevated LDL cholesterol level Expected: 09/16/2021, Expires: 11/16/2021 [facility] Work Phone: Comment on above: Expected: 09/16/2021 , Expires: 11/16/2021 Start: 09-16-2021 End: 11-16-2021 Hepatitis C virus Ab [Presence] in Serum HEP C AB IA W/CONF SCRN Lab Routine Need for hepatitis C screening test Expected: 09/16/2021, Expires: 11/16/2021 [facility] Work Phone: Comment on above: Expected: 09/16/2021 , Expires: 11/16/2021 Start: 09-16-2021 End: 11-16-2021 HIV 1+2 Ab [Presence] in Serum or Plasma by Immunoassay HIV 1 2 COMBO(AG/AB),WITH REFLEX TO DIFFERENTIATION Lab Routine Screening for HIV (human immunodeficiency virus) Expected: 09/16/2021, Expires: 11/16/2021 [facility] Work Phone: Comment on above: Expected: 09/16/2021 , Expires: 11/16/2021 Start: 09-16-2021 End: 11-16-2021 LIPID PANEL BASIC LIPID PANEL BASIC Lab Routine Elevated LDL cholesterol level Expected: 09/16/2021, Expires: 11/16/2021 [facility] Work Phone: Comment on above: Expected: 09/16/2021 , Expires: 11/16/2021 Start: 09-16-2021 End: 11-16-2021 Thyrotropin [Units/volume] in Serum or Plasma TSH BLD Lab Routine Acquired hypothyroidism Expected: 09/16/2021, Expires: 11/16/2021 [facility] Work Phone: Comment on above: Expected: 09/16/2021 , Expires: 11/16/2021 Start: 09-01-2021 COVID-19 VACCINE (4 - Booster for Pfizer series) COVID-19 VACCINE (4 - Booster for Pfizer series) [facility] Start: 06-28-2021 COVID-19 VACCINE (4 - Booster for Pfizer series) COVID-19 VACCINE (4 - Booster for Pfizer series) [facility] Start: 06-28-2021 COVID-19 VACCINE (4 - Pfizer series) COVID-19 VACCINE (4 - Pfizer series) [facility] Start: 05-25-2021 DEPRESSION ASSESSMENT DEPRESSION ASS ESSMENT [facility] Start: 2019 SHINGRIX VACCINE (1 of 2) SHINGRIX VACCINE (1 of 2) [facility] Start: 2014 COLOGUARD (FIT-DNA) COLOGUARD (FIT-D NA) [facility] Start: 2014 Colonoscopy COLONOSCOPY [facility] Start: 2014 COLORECTAL CANCER SCREENING COLORECTAL CANCER SCREENING [facility] Start: [address] COLONOGRAPHY [facility] Start: 2014 FECAL OCCULT BLOOD FECAL OCCULT BLOO D [facility] Start: 2014 Screening for malign ant neoplasm of colon [facility] Start: 2014 SIGMOIDOSCOPY SIGMOIDOSCOPY [facility] Start: 10-08-2008 Urine microalbumin profile [facility] Start: 1987 Anxiety Screening Anxiety Screening [facility] Start: 1987 Depression Screening Depression Scre ening [facility] Start: 1987 HEPATITIS C SCREENING HEPATITIS C SC REENING [facility] Start: 1987 HIV SCREENING HIV SCREENING [facility] Start: 1970 HEPATITIS B (1 of 3 - 3-dose series) HEPATITIS B (1 of 3 - 3-dose series) [facility] Start: 1970 Hepatitis B Vaccine (1 of 3 - 3-dose series) Hepatitis B Vaccine (1 of 3 - 3-dose series) [facility] End: 06-11-2024 ROMERO SCREENING ROMERO SCREENING Radiology Routine Encounter for screening mammogram for breast cancer 1 Occurrences starting 05/13/2023 until 06/11/2024 [facility] Work Phone: Comment on above: 1 Occurrences starti ng 05/13/2023 until 06/11/2024 [facility] Immunizations Immunization Date Immunization Notes Care Provider Alona fritz 05-03-2021 COVID-19 vaccine, ag e 12+ yr (PFIZER-BIONTECH - PURPLE TOP) Meena Vetovitz PA-C Work Phone: [facility] 09-08-2020 COVID-19 vaccine, ag e 12+ yr (PFIZER-BIONTECH - PURPLE TOP) Meena Vetovitz PA-C Work Phone: [facility] 08-18-2020 COVID-19 vaccine, ag e 12+ yr (PFIZER-BIONTECH - PURPLE TOP) Meena Vetovitz PA-C Work Phone: [facility] 08-13-2018 influenza virus vaccine, unspecified formulation Delicia Johnson MD Work Phone: [facility] 01-16-2012 hepatitis A vaccine, adult dosage Meena Vetovitz PA-C Work Phone: [facility] Work Phone: 06-25-2011 hepatitis A vaccine, adult dosage Meena Vetovitz PA-C Work Phone: [facility] Work Phone: 10-07-2008 tetanus and diphther ia toxoids, adsorbed, preservative free, for adult use (2 Lf of tetanus toxoid and 2 Lf of diphtheria toxoid) Meena Vetovitz PA-C Work Phone: [facility] Work Phone: Payers Date Payer Category Payer Unknown [employer] [id number] 2021-Present [phone] [address] [place] [address] O [id number] 15 2021 Unknown [facility] [id number] 2021-Present [phone] [address] [place] [address] O [id number] 15 2021 Unknown [id number] 2010 Private Health Insurance [facility] [id number] 2010-2021 [address] [address] [place] [address] O [id number] Social History Date Type Detail Facility Start: 12-22-2011 Tobacco smoking status TXIS Never smoked tobacco [facility] Start: 12-22-2011 Tobacco use and exposure Smokeless tobacco non-user [facility] Start: 03-20-2021 End: 05-19-2023 Alcohol intake Current drinker of alcohol (finding) [facility] Start: 05-02-2020 End: 03-20-2021 Alcohol intake [facility] Start: 03-18-2021 End: 04-01-2022 History SDOH Alcohol Frequency 3 [facility] Start: 03-18-2021 End: 04-01-2022 History SDOH Alcohol Std Drinks 1 [facility] Start: 03-18-2021 End: 04-01-2022 History SDOH Alcohol Binge 2 [facility] Start: 12-22-2011 History SDOH Alcohol Comment socially [facility] Start: 03-18-2021 End: 04-01-2022 History SDOH Social Connections Phone 4 [facility] Start: 03-18-2021 History SDOH Financial 5 [facility] Start: 1970 Sex Assigned At Female [facility] Start: 02-18-2021 End: 04-04-2022 Exposure to SARS-CoV-2 (event) Not sure [facility] Start: 05-02-2020 End: 03-31-2022 Social connection and isolation panel [facility] Do you belong to any clubs or organizations such as methodist groups, unions, fraternal or athletic groups, or school groups? Yes [facility] Are you now , , , , never or living with a partner? [facility] How often to you hav e a drink containing alcohol? 2-4 times a month [facility] How many standard dr inks containing alcohol do you have on a typical day? 3 or 4 [facility] How often do you hav e 6 or more drinks on 1 occasion? Less than monthly [facility] How hard is it for y ou to pay for the very basics like food, housing, medical care, and heating Not very hard [facility] Adult Depression Screening Assessment 0 [facility] Work Phone: Do you feel stress - tense, restless, nervous, or anxious, or unable to sleep at night because your mind is troubled all the time - these days [OSQ] To some extent [facility] (I/We) worried wheth er (my/our) food would run out before (I/we) got money to buy more. Never true [facility] In the past 12 month s, was there a time when you were not able to pay the mortgage or rent on time? No [facility] Start: 04-11-2021 Gender identity Identifies as female gender (finding) [facility] Start: 04-11-2021 Sexual orientation Heterosexual (finding) [facility] Do you feel stress - tense, restless, nervous, or anxious, or unable to sleep at night because your mind is troubled all the time - these days [OSQ] Only a little [facility] How many standard dr inks containing alcohol do you have on a typical day? 1 or 2 [facility] Clinical Notes 10-13-2012 to 01-15-2024 Telephone Encounter - Naila Lopez LPN - 01/15/2024 9:46 AM EDTTelephone Encounter - Naila Lopez LPN - 01/15/2024 9:46 AM EDTTelephone Encounter - Savita BowlingTAMAR - 08/18/2023 8:32 AM EDT Note Date & Type Note Facility 01-15-2024 Telephone encounter Note Prescription Refill Information The patient has been identified by name and date of : Yes Caregiver verified no other encounters exist for this prescription request: Yes Caregiver confirmed with patient/requestor that no other refills are due, in the near future, with this provider at this time: Yes The last office visit in the department: 05/19/23 Does the patient have a future office visit with this provider/department: No Last TSH 2.730 05/22/23 Requested Prescriptions Pending Prescriptions Disp Refills levothyroxine (SYNTHROID) 88 mcg tablet 90 tablet 0 Sig: Take 1 tablet by mouth once daily. Naila Lopez LPN January 15, 2024 9:46 AM [facility] 01-15-2024 Miscellaneous Notes Prescription Refill Information The patient has been identified by name and date of : Yes Caregiver verified no other encounters exist for this prescription request: Yes Caregiver confirmed with patient/requestor that no other refills are due, in the near future, with this provider at this time: Yes The last office visit in the department: 05/19/23 Does the patient have a future office visit with this provider/department: No Last TSH 2.730 05/22/23 Requested Prescriptions Pending Prescriptions Disp Refills levothyroxine (SYNTHROID) 88 mcg tablet 90 tablet 0 Sig: Take 1 tablet by mouth once daily. Naila Lopez LPN January 15, 2024 9:46 AM documented in this encounter [facility] 08-18-2023 Miscellaneous Notes Patient MyChart message requesting the following refill Refill(s) Requested: Requested Prescriptions Pending Prescriptions Disp Refills levothyroxine (SYNTHROID) 88 mcg tablet 90 tablet 0 Sig: Take 1 tablet by mouth once daily. ALLERGIES Allergen Reactions Bee Sting Other: See Comments Penicillins Other: See Comments Was young - unsure of side effect (home) [phone] (work) [phone] (cell) Last Office Visit Date: 05/19/2023 Last [facility] Visit: Visit date not found Future Appointment: Visit date not found The patients preferred pharmacy has been captured for this encounter? yes Request is for script(s) to be escript to pharmacy. Savita Bowling LPN documented in this encounter [facility] 05-19-2023 Note HNO ID: [id number] Author: Delicia Johnson MD Service: ? Author Type: Physician Type: Progress Notes Filed: 05/19/2023 1:50 PM Note Text: Patient presents with: Physical HPI: Patient presents today for office visit for well visit. HYPOTHYROID:energy is doing well. Wants to do an am lab. Has mild hair thinning of her hair. Still not yet in menopause but wonders it it plays a role. Has some plantar fasciitis in her left heel. Wearing support shoes and stretches. Worse when has rested it. No trauma. Started this summer. Does favor her left side due to right knee issues. No weight changes but is in her bare feet frequently. Uses meloxicam just prn. Has had her ears checked. Has chronic tinnitus. Has a little issue with her base of her thumbs. Does have a hx of carpal tunnel. Numbness comes and goes. Discussed trying braces. Red flags for re-assessment reviewed with patient in detail. Still seeing Dr. Lugo. Discussed that her insurance may cover her for weight loss. Discussed that we could try a med after the first when her coverage changes. Discussed meds. MEDICATIONS: Current Outpatient Medications Medication Sig levothyroxine (SYNTHROID) 88 mcg tablet Take 1 tablet by mouth once daily. meloxicam (MOBIC) 15 mg tablet Take 1 tablet by mouth once daily. meloxicam (MOBIC) 15 mg tablet Take 1 tablet by mouth once daily. With food. (Patient taking differently: Take by mouth once daily. With food.) tranexamic acid (LYSTEDA) 650 mg tablet TAKE 2 TABLETS BY MOUTH 3 TIMES A DAY 5 DAYS BEGIN AT ONSET OF MENSTRUAL BLEEDING No current facility-administered medications for this visit. 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 Obesity Septal panniculitis PAST SURGICAL HISTORY Procedure Laterality Date PAST SURGICAL HISTORY OF skin biopsy - erythema nodosum FAMILY HISTORY Problem Relation Age of Onset Thyroid Sister cancer - half sister Thyroid Maternal Aunt Hyperthyroidism Cancer Father leukemia Breast Cancer Mother 2007 Breast Cancer Paternal Grandmother Diabetes Father Thyroid Maternal Aunt Hypothyroidism Social History Tobacco Use Smoking status: Never Smokeless tobacco: Never Vaping Use Vaping Use: Never used Substance Use Topics Alcohol use: Yes Alcohol/week: 4.0 standard drinks of alcohol Types: 4 Glasses of Wine (5oz) per week Comment: socially Drug use: No Reviewed current medications, allergies, past medical history, surgical history, family history and social history today. REVIEW OF SYSTEMS RESPIRATORY: Negative for cough, hemoptysis, wheezing, COPD, dyspnea or shortness of breath CARDIOVASCULAR: Negative for chest pain, leg swelling, hypertension, CHF or palpitations GI: No nausea, vomiting, or diarrhea : No history of dysuria, frequency or incontinence All other reviewed and negative other than HPI. HEALTH MAINTENANCE: Reviewed health maintenance issues today and recommended the following in detail. Hepatitis B Vaccine(1 of 3 - 3-dose series) Never done DTaP,Tdap,Td Vaccine(1 - Tdap) due on 10/08/2008 Colorectal Cancer Screening - has never done. Has cologuard at home. Shingrix Vaccine(1 of 2) Never done Depression Assessment due on 05/25/2022 Annual PCP Team Chronic Disease Visit due on 04/04/2023 Mammogram Screening per sewage reticulation drafting officer. VITALS: BP 122/80 Pulse 74 Resp 16 Wt (!) 155.6 kg (343 lb) LMP 07/09/2017 SpO2 98% BMI 52.15 kg/m? Last 4 Encounter Wt Readings: Date: Wt: 05/19/2023 155.6 kg (343 lb) 04/04/2022 145.2 kg (320 lb) 03/20/2021 153.8 kg (339 lb) 08/13/2018 138.8 kg (306 lb) PHYSICAL EXAMINATION: General appearance: Well appearing, alert, in no acute distress, well-hydrated, well nourished. Skin: Skin color, texture, turgor normal, no suspicious rashes or lesions Head: Normocephalic, no masses, lesions, tenderness or abnormalities Eyes: Anicteric sclera. Pupils are equally round and reactive to light. Extraocular movements are intact. Ears: External ears normal, canals clear Nose/Sinuses: Nares normal, septum midline, mucosa normal, no drainage or sinus tenderness Oropharynx: Lips, mucosa, and tongue normal, teeth and gums normal, oropharynx normal Neck: Supple, no adenopathy; thyroid symmetric, normal size, no bruits Lungs: Lungs clear to auscultation. No wheezing, rhonchi, rales Heart: RRR without murmur, gallop, or rubs. No ectopy Abdomen: Normal abdominal exam, Abdomen soft, non-tender. Bowel sounds normal. No masses, organomegaly Extremities: No deformities, edema, skin discoloration, clubbing or cyanosis. Good capillary refill. Musculoskeletal: No joint swelling, deformity, or tenderness ASSESSMENT/PLAN: 1. Well (more content not included)... [facility] 05-13-2023 Note Patient Outreach (IN [facility]) FARRAH MAYBERRY ([id number]) 1970 F Date Time Provider Department 05/13/23 DELICIA JOHNSON During your visit today, we recorded the following information about you: Allergies As of Date: 05/13/2023 Noted Allergy Reaction BEE STING 07/14/2017 14 - Other: See Comments PENICILLINS 12/22/2011 14 - Other: See Comments Comments: Was young - unsure of side effect Date Reviewed: 04/04/2022 Reviewed by: Naila Lopez LPN - Fully Assessed Visit Diagnosis:Encounter for screening mammogram for breast cancer [Z12.31] Order(s):[facility] SCREEN[facility] [[id number]] Order #: [id number] FUTURE Prescriptions as of 05/18/2023 - levothyroxine (SYNTHROID) 88 mcg tablet Take 1 tablet by mouth once daily. - meloxicam (MOBIC) 15 mg tablet Take 1 tablet by mouth once daily. - meloxicam (MOBIC) 15 mg tablet Take 1 tablet by mouth once daily. With food. - tranexamic acid (LYSTEDA) 650 mg tablet TAKE 2 TABLETS BY MOUTH 3 TIMES A DAY 5 DAYS BEGIN AT ONSET OF MENSTRUAL BLEEDING Problem List As Of Date 05/13/2023 Noted Resolved Abnormal thyroid blood test [R79.89] 10/13/2012 06/24/2017 Acquired hypothyroidism [E03.9] 03/04/2016 Lipodermatosclerosis [M79.3] 07/14/2017 Obesity, Class III, BMI 40-49.9 (morbid obesity*10/07/2017 Encounter Status:Closed by [employer], Dheere BoloUSER on 05/18/23 [facility] 04-15-2023 Miscellaneous Notes Scheduled for physical in April. documented in this encounter [facility] 12-15-2022 Miscellaneous Notes Patient has been identified by name and date of : Yes Requested Prescriptions Pending Prescriptions Disp Refills levothyroxine (SYNTHROID) 88 mcg tablet 30 tablet 3 Sig: Take 1 tablet by mouth once daily. RX INSTRUCTIONS: Patient aware RX will be sent to pharmacy. No need to notify patient. Patient last office visit: 04/04/22 Patient next office visit: none scheduled Sybil Klein MA documented in this encounter [facility] 08-11-2022 Miscellaneous Notes Patient phones requesting refills as follows: Requested Prescriptions Pending Prescriptions Disp Refills levothyroxine (SYNTHROID) 88 mcg tablet 30 tablet 1 Sig: Take 1 tablet by mouth once daily. MELISSA 04/04/22 NOV no upcoming appt Please review and advise. Usman Herrera LPN documented in this encounter [facility] 06-05-2022 Miscellaneous Notes Patient phones requesting refills as follows: Requested Prescriptions Pending Prescriptions Disp Refills levothyroxine (SYNTHROID) 88 mcg tablet 30 tablet 1 Sig: Take 1 tablet by mouth once daily. MELISSA-04/04/22 Labs-04/04/22 NOV-none med filled 04/01/22 Please review and advise. Sherri Salgado LPN documented in this encounter [facility] 04-04-2022 History of Presen t illness Narrative Patient presents with: Physical HPI: Patient presents today for office visit for physical HYPOTHYROID: Patient is compliant with medications: No Patient has changes in energy: No Patient has changes in hair or skin: No Patient has temperature intolerance: No Patient has weight changes: No Rarely using meloxicam. Has not had to be back into derm. Has been working on weight loss. Is working on Noom. Component Latest Ref Rng & Units 10/07/2021 WBC 3.70 - 11.00 k/uL 6.22 RBC 3.90 - 5.20 m/uL 3.96 Hemoglobin 11.5 - 15.5 g/dL 12.4 Hematocrit 36.0 - 46.0 % 37.7 MCV 80.0 - 100.0 fL 95.2 MCH 26.0 - 34.0 pg 31.3 MCHC 30.5 - 36.0 g/dL 32.9 RDW-CV 11.5 - 15.0 % 13.8 Platelet Count 150 - 400 k/uL 245 MPV 9.0 - 12.7 fL 9.7 Neut% % 55.0 Abs Neut (ANC) 1.45 - 7.50 k/uL 3.42 Lymph% % 35.0 Abs Lymph 1.00 - 4.00 k/uL 2.18 [place]% % 6.9 Abs [place] <0.87 k/uL 0.43 Eosin% % 1.8 Abs Eosin <0.46 k/uL 0.11 Baso% % 0.8 Abs Baso <0.11 k/uL 0.05 Immature Gran % % 0.5 IMMATURE GRANS (ABS) <0.10 k/uL 0.03 NRBC /100 WBC 0.0 Absolute nRBC <0.01 k/uL <0.01 DTYPE Auto Protein, Total 6.3 - 8.0 g/dL 6.7 Albumin 3.9 - 4.9 g/dL 3.7 (L) Calcium 8.5 - 10.2 mg/dL 8.8 Bilirubin, Total 0.2 - 1.3 mg/dL 0.4 Alkaline Phosphatase 34 - 123 U/L 71 AST 13 - 35 U/L 15 ALT 7 - 38 U/L 13 Glucose 74 - 99 mg/dL 94 BUN 7 - 21 mg/dL 13 Creatinine 0.58 - 0.96 mg/dL 0.69 Sodium 136 - 144 mmol/L 138 Potassium 3.7 - 5.1 mmol/L 4.1 Chloride 97 - 105 mmol/L 102 CO2 22 - 30 mmol/L 23 Anion Gap 9 - 18 mmol/L 13 eGFR >=60 mL/min/1.73m 105 Cholesterol, Total <200 mg/dL 179 Triglyceride <150 mg/dL 82 HDL Cholesterol >39 mg/dL 56 Non HDL Cholesterol <130 mg/dL 123 Fasting Time hrs 12 VLDL Cholesterol <30 mg/dL 16 TC:HDL Ratio <5.10 3.20 LDL Cholesterol <100 mg/dL 107 (H) LDL:HDL Ratio <2.54 1.91 HIV 12 Combo (Ag/Ab) Nonreactive Nonreactive HIV 1/2 Ab HIV Interpretation TSH 0.270 - 4.200 mIU/L 1.490 Hep C Antibody IA Negative Negative MEDICATIONS: Current Outpatient Medications Medication Sig levothyroxine (SYNTHROID) 88 mcg tablet Take 1 tablet by mouth once daily. meloxicam (MOBIC) 15 mg tablet Take 1 tablet by mouth once daily. meloxicam (MOBIC) 15 mg tablet Take 1 tablet by mouth once daily. meloxicam (MOBIC) 15 mg tablet Take 1 tablet by mouth once daily. With food. (Patient taking differently: Take by mouth once daily. With food.) tranexamic acid (LYSTEDA) 650 mg tablet TAKE 2 TABLETS BY MOUTH 3 TIMES A DAY 5 DAYS BEGIN AT ONSET OF MENSTRUAL BLEEDING No current facility-administered medications for this visit. 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 Obesity Septal panniculitis PAST SURGICAL HISTORY Procedure Laterality Date PAST SURGICAL HISTORY OF skin biopsy - erythema nodosum FAMILY HISTORY Problem Relation Age of Onset Thyroid Sister cancer - half sister Thyroid Maternal Aunt Hyperthyroidism Cancer Father leukemia Breast Cancer Mother 2007 Breast Cancer Paternal Grandmother Diabetes Father Thyroid Maternal Aunt Hypothyroidism Social History Tobacco Use Smoking status: Never Smokeless tobacco: Never Vaping Use Vaping Use: Never used Substance Use Topics Alcohol use: Yes Alcohol/week: 10.0 standard drinks Types: 4 Glasses of Wine (5oz) per week Comment: socially Drug use: No Reviewed current medications, allergies, past medical history, surgical history, family history and social history today. REVIEW OF SYSTEMS ENT: has chronic tinnitus. 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 HEALTH MAINTENANCE: Reviewed health maintenance issues today and recommended the following in detail. HEPATITIS B(1 of 3 - 3-dose series) Never done DTAP,TDAP,TD(1 - Tdap) due on 10/08/2008 COLORECTAL CANCER SCREENING -cologuard -has at home. SHINGRIX VACCINE(1 of 2) Never done COVID-19 VACCINE(4 - Booster for Pfizer series) due on 06/28/2021 Getting mammogram and seeing sewage reticulation drafting officer, Dr. Lugo. VITALS: BP 122/82 Pulse 67 Wt (!) 145.2 kg (320 lb) LMP 07/09/2017 SpO2 96% BMI 48.66 kg/m Last 4 Encounter Wt Readings: Date: Wt: 04/04/2022 145.2 kg (320 lb) 03/20/2021 153.8 kg (339 lb) 08/13/2018 138.8 kg (306 lb) 07/14/2017 153.8 kg (339 lb) PHYSICAL EXAMINATION: General appearance: Well appearing, alert, in no acute distress, well-hydrated, well nourished. Skin: Skin color, texture, turgor normal, no suspicious rashes or lesions Head: Normocephalic, no masses, lesions, tenderness or abnormalities Eyes: Anicteric sclera. Pupils are equally round and reactive to light. Extraocular movements are intact. Ears: External ears normal, canals clear Neck: Supple, no adenopathy; thyroid symmetric, normal size, no bruits Lungs: Lungs clear to auscultation. No wheezing, rhonchi, rales Heart: RRR without murmur, gallop, or rubs. No ectopy Abdomen: Normal abdominal exam, Abdomen soft, non-tender. Bowel sounds normal. No masses, organomegaly Extremities: No deformities, edema, skin discoloration, clubbing or cyanosis. Good capillary refill. Musculoskeletal: No joint swelling, deformity, or tenderness ASSESSMENT/PLAN: 1. Well adult exam - ICD9: V70.0, ICD10: Z00.00 (primary diagnosis) - follow progress. 2. Acquired hypothyroidism - ICD9: 244.9, ICD10: E03.9 - follow labs - TSH BLD - T4 FREE/FREE THYROX 3. Obesity, Class III, BMI 40-49.9 (morbid obesity) (HCC) - ICD9: 278.01, ICD10: E66.01 - using noom 4. Tinnitus of both ears - ICD9: 388.30, ICD10: H93.13 - see ent - CONSULT TO ENT Delicia Johnson MD documented in this encounter [facility] 04-01-2022 Miscellaneous Notes Patient has been identified by name and date of : Yes Patient phones for refill(s): Requested Prescriptions Pending Prescriptions Disp Refills levothyroxine (SYNTHROID) 88 mcg tablet 30 tablet 1 Sig: Take 1 tablet by mouth once daily. Date of last office visit in primary care: 03/20/21 Next appointment scheduled 04/04/22 Please advise. Thank you. Lo Fabian LPN documented in this encounter [facility] 02-26-2022 Miscellaneous Notes Patient has been identified by name and date of : Yes Patient phones for refill(s): Requested Prescriptions Pending Prescriptions Disp Refills levothyroxine (SYNTHROID) 88 mcg tablet 30 tablet 1 Sig: Take 1 tablet by mouth once daily. Date of last office visit in primary care: 03/20/21 Next appointment scheduled 03/24/22 Previous labs/tests for medication: Thyroid: TSH Date Value 10/07/2021 1.490 mIU/L 07/06/2020 2.050 uU/mL Please advise. Thank you. Lo Fabian LPN documented in this encounter [facility] 02-26-2022 Miscellaneous Notes Last creatinine 10/07/21 0.69 documented in this encounter [facility] 11-18-2021 Miscellaneous Notes Patient phones requesting refills as follows: Pending Prescriptions Disp Refills LEVOTHYROXINE 88 MCG TABLET 30 tablet 1 Sig: Take 1 tablet by mouth once daily. KRISTI: No MELISSA 10/07/21 NOV 03/24/22 Please review and advise. Usman Herrera LPN documented in this encounter [facility] 10-07-2021 History of Presen t illness Narrative Associated Order(s): Large Joint Arthro/Inj: R knee joint; Large Joint Arthro/Inj: R anserine bursa Post-Procedure Diagnose(s): Primary osteoarthritis of both knees; Acute pain of right knee; Pes anserinus bursitis of right knee Meena Smith PA-C Department of Orthopaedics [facility] [address] [facility] [address] Dept: [phone] Dept October 07, 2021 CHIEF COMPLAINT: Established Patient and Pain of the Right Knee Ms. Farrah Jorge is a 51 year old female she presents with continued right knee pain that is a to 8 out of 10. Pain is a aching, throbbing that is mostly anterior, she states she is starting to get some new pain that is medial just below her knee. She has been taking meloxicam which she does notice improvement with but is still having knee discomfort. She states if she is too active her knee pain increases. She is also having a difficult time finding a comfortable position for sleep. Her son is getting next Thursday and she is interested in trying a corticosteroid injection so she can hopefully enjoy the wedding. ASSESSMENT: M17.0 Primary osteoarthritis of both knees (primary encounter diagnosis) M70.51 Pes anserinus bursitis of right knee M25.561 Acute pain of right knee PLAN: She has patellofemoral osteoarthritis and would like to try an intra-articular corticosteroid injection today. She also seems to have a little bit of pes anserine bursitis on the right. We discussed trying a small cortisone injection in that area as well, she was advised to work on some hamstring stretches which were demonstrated in the office. She can follow-up as needed. Ms. Farrah Jorge was advised as to contrast therapies and/or to take analgesics/anti-inflammatories as needed and all contraindications were reviewed. OBJECTIVE: Ms. Farrah Jorge is a pleasant 51 year old in no apparent distress. Gen:LMP 07/09/2017 nl development, obese, no deformities ENT: Normocephalic, normal hearing, moist mucosa CV: Pulses:DP/PT= 2+ and symmetric, capillary refill < 2 secs, no peripheral edema/varicosities Skin: no rash, bruising or lesions. Good turgor. Psych: cooperative and appropriate, alert and oriented x 3, good mood and affect. Musculoskeletal: KNEE EXAM: Right: Alignment: Neutral Range of motion is lacking a few degrees secondary to tight hamstrings degrees in extension and 110 degrees of flexion. Extension La degrees Pain with ROM: No Effusion: Slight Tender to the palpation of Pes anserine bursa, Medial femoral condyle and Medial joint line Pain with patellar compression: Yes Stability: Anterior/Posterior stable and Varus/Valgus stable Hip Exam: flexion to 100+ degrees, full extension, internal/external rotation adequate and no pain with log roll Neurovascular Status: Sensation Intact, Moves foot and ankle up & down and 2+ dorsalis pedis Large Joint Arthro/Inj: R knee joint Informed Consent Consent Obtained: Verbal [place] Protocol A moment to CARE was completed. SIGN IN Sign in communication not applicable due to emergent procedure. Personnel directly involved with the procedure wore the appropriate PPE. Special Equipment: N/A Patient/Surrogate Stated/Verified: Patient name, Date of , Relevant allergies and Intended procedure TIME OUT Intended patient and procedure match the source document(s). Consent documented and matches the intended procedure. Relevant labs, photos, and/or imaging studies have been reviewed. Correct side/site marked and visible. Medications required for procedure verified. No fire risk assessment and interventions applicable. No implant(s) inserted. 10/07/2021 10:51 AM The procedure site was prepped in the usual sterile fashion. Site: R knee joint Medications: 6 mg betamethasone acetate-betamethasone sodium phosphate 6 mg/mL Anesthetics: 5 mL lidocaine (PF) 10 mg/mL (1 %) Outcome: Tolerated well, no immediate complications Post-injection instructions were reviewed with the patient and the patient voiced understanding of these instructions. SIGN OUT Post-procedure follow-up management communicated and Plan of Care Visit completed when applicable Large Joint Arthro/Inj: R anserine bursa Informed Consent Consent Obtained: Verbal [place] Protocol A moment to CARE was completed. SIGN IN Sign in communication not applicable due to emergent procedure. Personnel directly involved with the procedure wore the appropriate PPE. Special Equipment: Yes Patient/Surrogate Stated/Verified: Patient name, Date of , Relevant allergies and Intended procedure TIME OUT Intended patient and procedure match the source document(s). Consent documented and matches the intended procedure. Relevant labs, photos, and/or imaging studies have been reviewed. Correct side/site marked and visible. Medications required for procedure verified. No fire risk assessment and interventions applicable. No implant(s) inserted. 10/07/2021 10:51 AM The procedure site was prepped in the usual sterile fashion. Site: R anserine bursa Medications: 3 mg betamethasone acetate-betamethasone sodium phosphate 6 mg/mL Anesthetics: 0.5 mL lidocaine (PF) 10 mg/mL (1 %) Outcome: Tolerated well, no immediate complications Post-injection instructions were reviewed with the patient and the patient voiced understanding of these instructions. SIGN OUT Post-procedure follow-up management communicated and Plan of Care Visit completed when applicable Imaging: IMPRESSION: 1. Bilateral lateral patellar subluxation. 2. Osteoarthritis as described. Photo Checker: REDD Transcribe Date/Time: Mar 20 2021 9:35A Dictated by : SHARA HOLCOMB MD This examination was interpreted and the report reviewed and electronically signed by: SHARA HOLCOMB MD on Mar 20 2021 9:37AM EST Results-Findings * * *Final Report* * * DATE OF EXAM: Mar 20 2021 9:08AM WOX [id number] - XR KNEE 4V AP/PA BOTH+LAT/JERRY RT / PROCEDURE REASON: Sprain of right knee, unspecified ligament, initial encounter * * * * Physician Interpretation * * * * CLINICAL INDICATION: Knee pain TECHNIQUE: AP/PA/merchant radiographs of both knees and lateral radiograph of the right knee COMPARISON: None FINDINGS: Right knee: No suprapatellar joint effusion. No acute fracture. Mild medial compartmental joint space narrowing. Lateral patellar subluxation with severe patellofemoral compartmental joint space narrowing along the lateral patellar facet. Tricompartmental osteophyte production. Left knee: No acute fracture. Mild medial compartmental joint space narrowing. Lateral patellar subluxation with moderate patellofemoral compartmental joint space narrowing along the lateral patellar facet. Tricompartmental osteophyte production. Supporting Subjective Information Below: Past Surgical History: PAST SURGICAL HISTORY Procedure Laterality Date PAST SURGICAL HISTORY OF skin biopsy - erythema nodosum Medications: Current Outpatient Medications Medication Sig levothyroxine (SYNTHROID) 88 mcg tablet Take 1 tablet by mouth once daily. meloxicam (MOBIC) 15 mg tablet Take 1 tablet by mouth once daily. With food. tranexamic acid (LYSTEDA) 650 mg tablet TAKE 2 TABLETS BY MOUTH 3 TIMES A DAY 5 DAYS BEGIN AT ONSET OF MENSTRUAL BLEEDING meloxicam (MOBIC) 15 mg tablet Take 1 tablet by mouth once daily. meloxicam (MOBIC) 15 mg tablet Take 1 tablet by mouth once daily. No current facility-administered medications for this visit. Allergies: Bee Sting and Penicillins ROS: General (negative for fatigue, malaise, weight loss/gain) HEENT (negative for headache, earache, recent vision changes, sinus pain, sore throat) Respiratory (no recent shortness of breath, hemoptysis) CV (negative for chest tightness, palpitations) Musculoskeletal (see HPI) Psych (no depression, anxiety) This note was partially generated using Jiahe voice recognition system, and there may be some incorrect words, spellings, and punctuation that were not noted in checking the note before saving. Meena Smith PA-C AMB ROOMING INTAKE FLOWSHEET DATA Risk Screening Do you have concerns about personal safety or safety in the home?: No Pain Pain Level: 2 (as high as 8) Pain Location: Knee-Right Description: Aching, Throbbing Duration Amount of Time: (ongoing) Frequency: Continuous Intervention/Comfort measure: Medication, Cold Patient here today for 5 month post visit right knee pain. Her son is getting next Thursday and she is asking for cortisone injection. documented in this encounter [facility] 09-17-[address] Johnson, pt due for labs in 6 months and yearly physical in February. Mychart sent to pt. ummary: Physical Pt had a physical in February, do we just need to schedule a follow-up? Schedulers please assist pt with scheduling 40 min Physical with fasting labs to be completed prior to appt. Usman Herrera LPN Overdue for OV- schedule physical + HM completion with PCP, Fasting lab prior Refill on 09/16/21 TSH BLD CBC + DIFF COMP METABOLIC PANEL LIPID PANEL BASIC HEP C AB IA W/CONF SCRN HIV 1 2 COMBO(AG/AB),WITH REFLEX TO DIFFERENTIATION The following approved medication requests have been transmitted electronically. Signed Prescriptions Disp Refills levothyroxine (SYNTHROID) 88 mcg tablet 30 tablet 1 Sig: Take 1 tablet by mouth once daily. KRISTI: No Authorizing Provider: Srinivas CARRIZALES PA-C Patient phones requesting refills as follows: Pending Prescriptions Disp Refills LEVOTHYROXINE 88 MCG TABLET 30 tablet 11 Sig: Take 1 tablet by mouth once daily. KRISTI: No MELISSA 04/11/21 NOV no upcoming appt Please review and advise. Usman Herrera LPN documented in this encounter [facility] 09-16-2021 Miscellaneous Notes Patient is requesting refill on Meloxicam. Looks like she may need new blood tests completed. Please advise, thank you! documented in this encounter [facility] 03-20-2021 History of Presen t illness Narrative Radiology Service Progress Note PATIENT NAME: Farrah Jorge DATE OF SERVICE: March 20, 2021 TIME: 8:55 AM PATIENT IDENTITY VERIFICATION COMPLETED USING TWO (2) IDENTIFIERS: Name and Date of confirmed by patient verbally. FALL SCREENING: Has the patient had 2 falls in the last year or 1 fall with injury or currently using an Ambulatory Assistive Device (Walker, Cane, Wheelchair, Crutches, etc.)? No PATIENT GENDER DATA: Female. status: : No status: NO. PATIENT RELEVANT IMPLANT DATA REVIEWED: Not Applicable RADIOLOGY DEPARTMENT: General X-ray: Exam(s) Completed: Lower Extremity X-Ray(s): Knee, AP / Lat / Tunne / Merchant Right and Wt. Bearing PERIPHERAL IV DATA: Not applicable SIGNED BY: Iza Gross RT(R) March 20, 2021 8:55 AM documented in this encounter [facility] 10-13-2012 History of Past i llness Narrative Problem Noted Date Resolved Date Abnormal thyroid blood test 10/13/201205/27 documented as of this encounter (statuses as of 09/16/2021) [facility] History of Past illness Narrative* Problem Noted Date Resolved Date Abnormal thyroid blood test 10/13/201205/27 documented as of this encounter (statuses as of 09/17/2021) [facility] of [facility] illness Narrative* Problem Noted Date Resolved Date Abnormal thyroid blood test 10/13/201205/27 documented as of this encounter (statuses as of 10/07/2021) [facility] of [facility] Narrative* Problem Noted Date Resolved Date Abnormal thyroid blood test 10/13/201205/27 documented as of this encounter (statuses as of 11/18/2021) [facility] Narrative* Problem Noted Date Resolved Date Abnormal thyroid blood test 10/13/201205/27 documented as of this encounter (statuses as of 02/26/2022) [facility] Narrative* Problem Noted Date Resolved Date Abnormal thyroid blood test 10/13/201205/27 documented as of this encounter (statuses as of 04/01/2022) [facility] Narrative* Problem Noted Date Resolved Date Abnormal thyroid blood test 10/13/201205/27 documented as of this encounter (statuses as of 04/04/2022) [facility] N[facility]ative* Problem Noted Date Resolved Date Abnormal thyroid blood test 10/13/201205/27 documented as of this encounter (statuses as of 06/05/2022) [facility] N[facility]ative* Problem Noted Date Resolved Date Abnormal thyroid blood test 10/13/201205/27 documented as of this encounter (statuses as of 08/11/2022) [facility] N[facility]ative* Problem Noted Date Diagnosed Date Resolved Date Abnormal thyroid blood test 10/13/2012 06/24/2017 documented as of this encounter (statuses as of 12/15/2022) [facility] N[facility]ative* Problem Noted Date Diagnosed Date Resolved Date Abnormal thyroid blood test 10/13/2012 06/24/2017 documented as of this encounter (statuses as of 04/15/2023) [facility]* Problem Noted Date Diagnosed Date Resolved Date Abnormal thyroid blood test 10/13/2012 06/24/2017 documented as of this encounter (statuses as of 05/18/2023) [facility]* Problem Noted Date Diagnosed Date Resolved Date Abnormal thyroid blood test 10/13/2012 06/24/2017 documented as of this encounter (statuses as of 08/18/2023) [facility] note* Diagnosis Subluxation of patellofemoral joint, unspecified laterality, initial encounter [facility] Diagnosis Acquired hypothyroidism- Primary Unspecified hypothyroidism Screening for HIV (human immunodeficiency virus) Special screening examination for other specified viral diseases Need for hepatitis C screening test Special screening examination for other specified viral diseases Obesity, Class III, BMI 40-49.9 (morbid obesity) (HCC) Morbid obesity Elevated LDL cholesterol level Pure hypercholesterolemia [facility] Diagnosis Primary osteoarthritis of both knees- Primary Primary localized osteoarthrosis, lower leg Pes anserinus bursitis of right knee Pes anserinus tendinitis or bursitis Acute pain of right knee [facility] Diagnosis Acquired hypothyroidism Unspecified hypothyroidism [facility] Diagnosis Acquired hypothyroidism Unspecified hypothyroidism [facility] Diagnosis Well adult exam- Primary Routine general medical examination at a health care facility Acquired hypothyroidism Unspecified hypothyroidism Obesity, Class III, BMI 40-49.9 (morbid obesity) (HCC) Morbid obesity Tinnitus of both ears Unspecified tinnitus [facility] Diagnosis Acquired hypothyroidism Unspecified hypothyroidism [facility] Diagnosis Acquired hypothyroidism Unspecified hypothyroidism documented in this encounter [facility] note* Diagnosis Acquired hypothyroidism Unspecified hypothyroidism documented in this encounter [facility] note* Diagnosis Acquired hypothyroidism Unspecified hypothyroidism documented in this encounter [facility] note* Diagnosis Encounter for screening mammogram for breast cancer documented in this encounter [facility] note* Diagnosis Acquired hypothyroidism Unspecified hypothyroidism documented in this encounter [facility] note* Diagnosis Acquired hypothyroidism Unspecified hypothyroidism documented in this encounter [facility] note* Diagnosis Sprain of right knee, unspecified ligament, initial encounter documented in this encounter [facility] for referral (narrative)* Diagnostic Procedure Only (Routine) - Authorized Specialty Diagnoses / Procedures Referred By Sam varma Referred To Contact [facility] Diagnoses Encounter for screening mammogram for breast cancer Procedures ROMERO SCREENING SCREENING MAMMOGRAPHY BI 2-VIEW BREAST INC CAD Delicia Johnson MD [address] [place] [address] [facility] [address] [place] [address] Referral ID Status Reason Start Date Expiration Date Visits Requested Visits Authorized [id number] Authorized Auto-Generat ed Referral 06/11/2024 1 1 [facility] for referral (narrative)* Diagnostic Procedure Only (Routine) - Closed Specialty Diagnoses / Procedures Referred By Sam varma Referred To Contact XR IMAGING Diagnoses Sprain of right knee, unspecified ligament, initial encounter Procedures XR KNEE GENERAL 4V AP BOTH/PA BOTH/LAT/MERC RT KNEE AP-WGT/LAT/MERCHANT Delicia Johnson MD [address] [place] [address] [place] [address] Referral ID Status Reason Start Date Expiration Date V isits Requested Visits Authorized [id number] Closed Auto-Generate d Referral 03/20/2021 04/19/2022 1 1 [facility] for visit Narrative* Diagnostic Procedure Only (Routine) - Closed Specialty Diagnoses / Procedures Referred By Grayac t Referred To Contact XR IMAGING Diagnoses Sprain of right knee, unspecified ligament, initial encounter Procedures XR KNEE GENERAL 4V AP BOTH/PA BOTH/LAT/MERC RT KNEE AP-WGT/LAT/BECCAHANT Delicia Johnson MD [address] [place] [address] [place] [address] Referral ID Status Reason Start Date Expiration Date V isits Requested Visits Authorized [id number] Closed Auto-Generate d Referral 03/20/2021 04/19/2022 1 1 [facility] Medications Administered Section Inactive Administered Medications - up to 3 most recent administrations Medication Order MAR Action Action Date Dose Rate Site betamethasone acetate-betamethasone sodium phosphate 3 mg injection (CELESTONE) 3 mg, Injection - FOR ORTHO USE ONLY, ONE TIME INJECTION, 1 dose, Starting on 10/07/21 at 1051, Until Thu10/07/21 at 1051 Given 10/07/2021 10:51 AM EDT 3 mg betamethasone acetate-betamethasone sodium phosphate 6 mg injection (CELESTONE) 6 mg, Injection - FOR ORTHO USE ONLY, ONE TIME INJECTION, 1 dose, Starting on Thu10/07/21 at 1051, Until 10/07/21 at 1051 Given 10/07/2021 10:51 AM EDT 6 mg lidocaine (PF) 10 mg/mL (1 %) 0.5 mL injection (XYLOCAINE) 0.5 mL, Injection - FOR ORTHO USE ONLY, ONE TIME INJECTION, 1 dose, Starting on 10/07/21 at 1051, Until 10/07/21 at 1051 Given 10/07/2021 10:51 AM EDT 0.5 mL lidocaine (PF) 10 mg/mL (1 %) 5 mL injection (XYLOCAINE) 5 mL, Injection - FOR ORTHO USE ONLY, ONE TIME INJECTION, 1 dose, Starting on Thu10/07/21 at 1051, Until Thu10/07/21 at 1051 Given 10/07/2021 10:51 AM EDT 5 mL Reason for Referral Specialty Diagnoses / Procedures Referred By Sam t Referred To Contact Ent - Otolaryngology Diagnoses Tinnitus of both ears Procedures CONSULT TO ENT OFFICE/OUTPATIENT [facility] MDM 60-74 MINUTES Delicia Johnson MD [address] [place] [address] Referral ID Status Reason Start Date Expiration Date Visits Requested Visits Authorized [id number] Pending Review PCP Requested Referral 2 04/04/2023 1 1 Summary Purpose Family History No Family History Records Found Advance Directives No Advanced Directives Records Found Additional Source Comments Source Comments (unrecognize d section and content) In the event this informatio n is protected by the Federal Confidentiality of Alcohol and Drug Abuse Patient Records regulations: The Federal rules restrict any use of the information to criminally investigate or prosecute any alcohol or drug abuse patient.[facility] the event this information is protected by the Federal Confidentiality of Alcohol and Drug Abuse Patient Records regulations: The Federal rules restrict any use of the information to criminally investigate or prosecute any alcohol or drug abuse patient.[facility] Hospital[facility] the event this information is protected by the Federal Confidentiality of Alcohol and Drug Abuse Patient Records regulations: The Federal rules restrict any use of the information to criminally investigate or prosecute any alcohol or drug abuse patient.[facility] HospitalIn the event this information is protected by the Federal Confidentiality of Alcohol and Drug Abuse Patient Records regulations: The Federal rules restrict any use of the information to criminally investigate or prosecute any alcohol or drug abuse patient.[facility] HospitalIn the event this information is protected by the Federal Confidentiality of Alcohol and Drug Abuse Patient Records regulations: The Federal rules restrict any use of the information to criminally investigate or prosecute any alcohol or drug abuse patient.[facility] HospitalIn the event this information is protected by the Federal Confidentiality of Alcohol and Drug Abuse Patient Records regulations: The Federal rules restrict any use of the information to criminally investigate or prosecute any alcohol or drug abuse patient.[facility] HospitalIn the event this information is protected by the Federal Confidentiality of Alcohol and Drug Abuse Patient Records regulations: The Federal rules restrict any use of the information to criminally investigate or prosecute any alcohol or drug abuse patient.[facility] HospitalIn the event this information is protected by the Federal Confidentiality of Alcohol and Drug Abuse Patient Records regulations: The Federal rules restrict any use of the information to criminally investigate or prosecute any alcohol or drug abuse patient.[facility] HospitalIn the event this information is protected by the Federal Confidentiality of Alcohol and Drug Abuse Patient Records regulations: The Federal rules restrict any use of the information to criminally investigate or prosecute any alcohol or drug abuse patient.[facility] HospitalIn the event this information is protected by the Federal Confidentiality of Alcohol and Drug Abuse Patient Records regulations: The Federal rules restrict any use of the information to criminally investigate or prosecute any alcohol or drug abuse patient.[facility] HospitalIn the event this information is protected by the Federal Confidentiality of Alcohol and Drug Abuse Patient Records regulations: The Federal rules restrict any use of the information to criminally investigate or prosecute any alcohol or drug abuse patient.[facility] HospitalIn the event this information is protected by the Federal Confidentiality of Alcohol and Drug Abuse Patient Records regulations: The Federal rules restrict any use of the information to criminally investigate or prosecute any alcohol or drug abuse patient.[facility] HospitalIn the event this information is protected by the Federal Confidentiality of Alcohol and Drug Abuse Patient Records regulations: The Federal rules restrict any use of the information to criminally investigate or prosecute any alcohol or drug abuse patient.[facility] HospitalIn the event this information is protected by the Federal Confidentiality of Alcohol and Drug Abuse Patient Records regulations: The Federal rules restrict any use of the information to criminally investigate or prosecute any alcohol or drug abuse patient.[facility] HospitalIn the event this information is protected by the Federal Confidentiality of Alcohol and Drug Abuse Patient Records regulations: The Federal rules restrict any use of the information to criminally investigate or prosecute any alcohol or drug abuse patient.[facility] HospitalIn the event this information is protected by the Federal Confidentiality of Alcohol and Drug Abuse Patient Records regulations: The Federal rules restrict any use of the information to criminally investigate or prosecute any alcohol or drug abuse patient[facility] Reason for Visit (unrecogniz ed section and content) Reason Onset Date Comments Refill Request 09/16/2021 Reason Comments Established Patient Pain Specialty Diagnoses / Procedures Referred By Contact Referred To Contact [facility] Diagnoses knee pain Procedures OFFICE VISIT, NEW PT., LEVEL 1 [place] [address] [place] [address] [facility] [address] [place] [address] Referral ID Status Reason Start Date Expiration Date V isits Requested Visits Authorized [id number] Closed OON/Self Pay Override 09/02/2021 12/01/2021 1 1 Reason Onset Date Comments Refill Request 11/18/2021 Reason Onset Date Comments Refill Request 02/26/2022 Reason Onset Date Comments Refill Request 03/31/2022 Reason Comments Physical Specialty Diagnoses / Procedures Referred By Contac t Referred To Contact [facility] Diagnoses physical Procedures physical [place] MD [address] [place] [address] [facility] [address] [address] [place] [address] Referral ID Status Reason Start Date Expiration Date Visits Requested Visits Authorized [id number] Pending Review OON/Self Pay Override 10/02/2021 05/19/2022 1 1 Reason Onset Date Comments Refill Request 06/05/2022 Reason Onset Date Comments Refill Request 08/09/2022 Reason Onset Date Comments Refill Request 12/15/2022 Reason Onset Date Comments Refill Request 04/15/2023 Reason Onset Date Comments Refill Request 08/18/2023 Reason Onset Date Comments Refill Request 01/14/2024 Care Teams (unrecognized sec tion and content) Home Sales Service Professional Relationship Specialty Start Date End Date Delicia Johnson MD [address] [facility] [place] [address] PCP - General Family Practice 07/14/17 Home Sales Service Professional Relationship Specialty Start Date End Date Delicia Johnson MD [address] [facility] [place] [address] PCP - General Family Practice 07/14/17 Home Sales Service Professional Relationship Specialty Start Date End Date Delicia Johnson MD [address] [facility] [place] [address] PCP - General Family Practice 07/14/17 Home Sales Service Professional Relationship Specialty Start Date End Date Delicia Johnson MD [address] [facility] [place] [address] PCP - General Family Practice 07/14/17 Home Sales Service Professional Relationship Specialty Start Date End Date Delicia Johnson MD [address] [facility] [place] [address] PCP - General Family Medicine 07/14/17 Home Sales Service Professional Relationship Specialty Start Date End Date Delicia Johnson MD [address] [facility] [place] [address] PCP - General Family Medicine 07/14/17 Home Sales Service Professional Relationship Specialty Start Date End Date Delicia Johnson MD [address] [facility] [place] [address] PCP - General Family Medicine 07/14/17 Home Sales Service Professional Relationship Specialty Start Date End Date Delicia Johnson MD [address] [facility] [place] [address] PCP - General Family Medicine 07/14/17 Home Sales Service Professional Relationship Specialty Start Date End Date Delicia Johnson MD [address] [place], [place] [id number] PCP - General Family Medicine 07/14/17 Home Sales Service Professional Relationship Specialty Start Date End Date Delicia Johnson MD [address] [place], [place] [id number] PCP - General Family Medicine 07/14/17 Home Sales Service Professional Relationship Specialty Start Date End Date Delicia Johnson MD [address] [place], [place] [id number] PCP - General Family Medicine 07/14/17 [employer] Relationship Specialty Start Date End Date Delicia Johnson MD [address] [place] [address] PCP - General Family Medicine 07/14/17 Home [employer] Service Professional Relationship Specialty Start Date End Date Delicia Johnson MD [address] [place] [address] PCP - General Family Medicine 07/14/17 Home [employer] Service Professional Relationship Specialty Start Date End Date Delicia Johnson MD [address] [place] [address] PCP - General Family Medicine 07/14/17 INFORMATION SOURCE (unrecogn ized section and content) DATE CREATED AUTHOR 05/23/2023 [facility] FOR RECORDS PERTAINING TO PATIENTS WHO ARE OR HAVE BEEN ENROLLED IN A CHEMICAL DEPENDENCY/SUBSTANCEABUSE PROGRAM, SOME INFORMATION MAY BE OMITTED. This clinical summary was aggregated from multiple sources. Caution should be exercised in using it in the provision of clinical care. This summary normalizes information from multiple sources, and as a consequence, information in this document may materially change the coding, format and clinical context of patient data. In addition, data may be omitted in some cases. CLINICAL DECISIONS SHOULD BE BASED ON THE PRIMARY CLINICAL RECORDS. [facility]. provides no warranty or guarantee of the accuracy or completeness of information in this document.
[2024-03-11 08:52] LABS: Absolute Lymphocyte Count 2.11 X10^3/uL (0.83-4.51); Absolute Neutrophil Count 2.6 X10^3/uL (2.0-7.7); Basophil# 0.06 X10^3/uL; Basophil% 1.1 % (0-1); Eosinophil# 0.13 X10^3/uL; Eosinophils% 2.4 % (0-5); Hematocrit 39.3 % (37-47); Hemoglobin 12.6 g/dL (12.0-15.0); Lymphocyte # 2.11 X10^3/ul (0.83-4.51); Lymphocyte % 39.5 % (19-41); Mean Corp Hgb Conc 32.1 g/dL (32-36); Mean Corpuscular Hgb 30.4 pg (27.0-32.0); Mean Corpuscular Volume 94.9 fL (81-99); Mean Platelet Vol. 9.8 fl (6.2-12.0); Monocyte# 0.43 X10^3/uL; Monocyte% 8.1 % (0-10); NRBC Flagged by Analyzer 0 % (0-5); Neutrophil # 2.59 X10^3/uL (2.7-7.7); Neutrophil % 48.5 % (47-70); Platelet Count 295 K/mm3 (150-450); RBC Distribution Width CV 13.2 % (11.6-14.6); RBC Distribution Width SD 46.5 fl (35.1-43.9); Red Blood Count 4.14 M/mm3 (4.2-5.4); White Blood Count 5.3 K/mm3 (4.4-11.0)
[2024-03-11 09:40] LABS: ALB/GLOB Ratio 0.8 RATIO (0.9-2.4); AST(SGOT) 13 U/L (15-37); Alanine Aminotransfer ALT/SGPT 18 U/L (13-56); Albumin, Serum 3.3 g/dL (3.2-5.0); Alkaline Phosphatase 79 U/L (45-117); Anion Gap 5 (5-15); BUN 16 mg/dL (7-18); BUN/Creat Ratio 21.3 RATIO (10-20); Calcium,Total 9.1 mg/dL (8.5-10.1); Chloride 107 mmol/L (98-107); Cholesterol 188 mg/dL (200); Creatinine, Serum 0.75 mg/dL (0.55-1.02); EST Glomerular Filtration Rate 85 mL/min (>60); Est Glom Filt Rate - Afr Amer 103 mL/min (>60); Globulin 4.1 g/dL (2.2-4.2); Glucose 91 mg/dL (74-106); High Density Lipoprotein 69 mg/dL; Potassium 3.8 mmol/L (3.5-5.1); Protein, Total 7.4 g/dL (6.4-8.2); Sodium Level 140 mmol/L (136-145); Triglycerides 60 mg/dL; Very Low Density Lipoprotein 12 mg/dL (5-40)
== END | disposition home or self-care (01) ==
LOC: LAB 08:11
PROVIDERS: PCP Family Medicine; Referring Provider Nurse Practitioner Family; Visit Provider Nurse Practitioner Family
DX: E78.00 Pure hypercholesterolemia, unspecified (principal); E66.89 Other obesity not elsewhere classified
CPT/HCPCS: 36415; 80053; 80061; 82306; 85025

== ENCOUNTER → 2024-05-30 | Outpatient (CLI) | payer OTHER, SELFPAY ==
[2024-06-02 09:07] LABS: HPV APTIMA, High Risk Negative (Negative)
== END | disposition home or self-care (01) ==
LOC: LABSPEC 13:36
PROVIDERS: PCP Family Medicine; Referring Provider Obstetrics & Gynecology; Visit Provider Obstetrics & Gynecology
DX: Z12.4 Encounter for screening for malignant neoplasm of cervix (principal)
CPT/HCPCS: 87624; 88175; G0145

== ENCOUNTER → 2025-01-11 | Outpatient (CLI) | payer OTHER, SELFPAY ==
[2025-01-11 12:19] LABS: Hematocrit 37.5 % (37-47); Hemoglobin 12.4 g/dL (12.0-15.0); Immature Granulocytes Count 0.010 X10^3/uL (0.0-0.0); Mean Corp Hgb Conc 33.1 g/dL (32-36); Mean Corpuscular Volume 94.0 fL (81-99); Mean Platelet Vol. 10.5 fl (6.2-12.0); NRBC Flagged by Analyzer 0 % (0-5); Platelet Count 286 K/mm3 (150-450); RBC Distribution Width CV 13.3 % (11.6-14.6); RBC Distribution Width SD 45.5 fl (35.1-43.9); Red Blood Count 3.99 M/mm3 (4.2-5.4); White Blood Count 6.4 K/mm3 (4.4-11.0)
[2025-01-11 13:16] LABS: AST(SGOT) 18 U/L (<=31); Alanine Aminotransfer ALT/SGPT 14 U/L (<=34); Albumin, Serum 3.9 g/dL (3.5-5.0); Alkaline Phosphatase 85 U/L (35-104); Anion Gap 11 (5-15); BUN 12 mg/dL (4-19); BUN/Creat Ratio 17.3 RATIO (10-20); Calcium,Total 9.4 mg/dL (7.6-11.0); Carbon Dioxide 25.4 mmol/L (21.0-32.0); Chloride 103 mmol/L (98-108); Cholesterol 191 mg/dL (<=200); Globulin 3.3 g/dL (2.2-4.2); Glucose 84 mg/dL (70-99); Low Density Lipoprotein Calc. 105 mg/dL; Potassium 3.7 mmol/L (3.3-5.1); Triglycerides 60 mg/dL; Very Low Density Lipoprotein 12 mg/dL (5-40); Vitamin D,25 Hydroxy 23.8 ng/mL (30-100); cholesterol:hdl ratio screen 2.60
== END | disposition home or self-care (01) ==
PROVIDERS: Nurse Practitioner Family; PCP Family Medicine; Visit Provider Advanced Practice Midwife
DX: E78.00 Pure hypercholesterolemia, unspecified (principal)
CPT/HCPCS: 36415; 80053; 80061; 82306; 84439; 84443; 85025

== ENCOUNTER → 2025-02-22 | Outpatient (CLI) | payer OTHER, SELFPAY | END | disposition home or self-care (01) | PROVIDERS: PCP Family Medicine; Referring Provider Nurse Practitioner Family; Visit Provider Nurse Practitioner Family | DX: R79.89 Other specified abnormal findings of blood chemistry (principal) | CPT/HCPCS: 36415; 84439 ==